=== PATIENT | female | born 1960 | race Caucasian/White ===

== ENCOUNTER 2021-04-22 14:09 | Inpatient (IN) | payer SELFPAY, OTHER ==
[2021-04-22 14:10] VITALS: BP 135/69; PULSE 99; RESP 16; TEMP 36.4; O2SAT 99; BMI 33.8
--- NOTE | 2021-04-22 15:26 | CT_ITS ---
EXAM: CT ANGIOGRAPHY HEAD AND NECK WITH INTRAVENOUS CONTRAST CLINICAL INDICATION: intermittent vertigo, confusion, aphasia,neck pain TECHNIQUE: [place]/head and neck CT angiography protocol performed with intravenous contrast. This CT exam was performed using one or more of the following dose reduction techniques: automated exposure control, adjustment of the mA and/or kV according to patient size, and/or use of iterative reconstruction technique. This report was created using [employer] report generation technology. MIP reconstructed images were created and reviewed. CONTRAST: IV 100mL Isovue-370 COMPARISON: None. FINDINGS: HEAD: RIGHT ANTERIOR CEREBRAL ARTERY: Unremarkable. No significant stenosis at the visualized segments. Anterior communicating artery is present. No aneurysm. RIGHT MIDDLE CEREBRAL ARTERY: Unremarkable. No significant stenosis at the visualized segments. No aneurysm. RIGHT POSTERIOR CEREBRAL ARTERY: Unremarkable. No occlusion or significant stenosis. No aneurysm. LEFT ANTERIOR CEREBRAL ARTERY: Unremarkable. No significant stenosis at the visualized segments. No aneurysm. LEFT MIDDLE CEREBRAL ARTERY: Unremarkable. No significant stenosis at the visualized segments. No aneurysm. LEFT POSTERIOR CEREBRAL ARTERY: Unremarkable. No occlusion or significant stenosis. No aneurysm. BASILAR ARTERY: Unremarkable. No significant stenosis. No aneurysm. GREAT VESSELS OF AORTIC ARCH: Unremarkable. Normal anatomy, patent. OTHER VASCULATURE: No vascular malformation. NECK: RIGHT COMMON CAROTID ARTERY: Unremarkable. No significant stenosis. No dissection or occlusion. RIGHT INTERNAL CAROTID ARTERY: There is calcified plaque formation of the right cavernous carotid artery, with a mild stenosis (less than 50%). There is calcified plaque formation of the left cavernous carotid artery, with a mild stenosis (less than 50%). ALL ABOVE CRITERIA BY NASCET. No dissection or occlusion. RIGHT EXTERNAL CAROTID ARTERY: Unremarkable. No occlusion. RIGHT VERTEBRAL ARTERY: Unremarkable. No significant stenosis. No dissection or occlusion. LEFT COMMON CAROTID ARTERY: Unremarkable. No significant stenosis. No dissection or occlusion. LEFT INTERNAL CAROTID ARTERY: There is mild atherosclerotic plaque formation of the origin of the right and left internal carotid artery with less than 50% cross sectional diameter stenosis. ALL ABOVE CRITERIA BY NASCET. LEFT EXTERNAL CAROTID ARTERY: Unremarkable. No occlusion. LEFT VERTEBRAL ARTERY: Unremarkable. No significant stenosis. No dissection or occlusion. LUNG APICES: Unremarkable as visualized. SOFT TISSUES: Unremarkable. OTHER FINDINGS: There are degenerative findings of the cervical spine. CAROTID STENOSIS REFERENCE USING NASCET CRITERIA: % ICA stenosis = (1 - narrowest ICA diameter/diameter of distal cervical ICA) x 100. Mild - <50% stenosis. Moderate - 50-69% stenosis. Severe - 70-94% stenosis. Near occlusion - 95-99% stenosis. Occluded - 100% stenosis. CT/CTA Head AND Neck W/ Contrast IMPRESSION: 1. There is mild atherosclerotic plaque formation of the origin of the right and left internal carotid artery with less than 50% cross sectional diameter stenosis. ALL ABOVE CRITERIA BY NASCET. 2. There is calcified plaque formation of the right cavernous carotid artery, with a mild stenosis (less than 50%). There is calcified plaque formation of the left cavernous carotid artery, with a mild stenosis (less than 50%). ALL ABOVE CRITERIA BY NASCET. Electronically Signed: Tony Jaeger MD at 17:39 EST ,
--- NOTE | 2021-04-22 15:26 | EKG12_ITS ---
Test Reason : Blood Pressure : / mmHG Vent. Rate : 082 BPM Atrial Rate : 082 BPM P-R Int : 144 ms QRS Dur : 082 ms QT Int : 354 ms P-R-T Axes : 043 -09 013 degrees QTc Int : 413 ms Normal sinus rhythm Normal ECG Confirmed by KHANH LUONG, DANIELLA ([id number]), commissioning editor LUIS ALFREDO JOAQUIN ([id number]) on 04/23/2021 9:47:48 AM Referred By: Confirmed By:DANIELLA CASSIDY MD
--- NOTE | 2021-04-22 15:28 | CT_ITS ---
STUDY: CT Abdomen And Pelvis W/ Contrast Injection 04/22/2021 5:39 PM REASON FOR EXAM: Female, 60 years old. ABDOMINAL PAIN diffuse abd pain, distension, n/v TECHNIQUE: Transaxial images were obtained without oral contrast, and with IV 100mL Isovue-370 intravenous contrast. Individualized dose optimization techniques were used for this CT. COMPARISON: None. FINDINGS: Small right pleural effusion. The visualized portions of the heart are within normal limits. Diffuse metastatic disease to liver. Perihepatic ascites. There are surgical clips in the gallbladder fossa consistent with a prior cholecystectomy. Normal spleen. Normal pancreas.There is hepatomegaly with diffuse hepatic enlargement. Normal bilateral adrenal glands. No acute findings of the right kidney. No acute findings of the left kidney. Focal wall thickening of the antrum of stomach. This can suggest a gastritis. Normal small intestine. Stool throughout the colon. There is non-visualization of the appendix. There are no acute findings of the abdominal aorta. Normal inferior vena cava. Subcentimeter mesenteric lymph nodes. Retroperitoneal adenopathy. Normal urinary bladder. Fibroid uterus visualized. There is mild free fluid in the pelvis. The source is not identified. Normal abdominal wall. Normal osseous structures. IMPRESSION: (NOT LISTED IN ORDER OF SIGNIFICANCE) Diffuse metastatic disease to liver. There is hepatomegaly with diffuse hepatic enlargement. Small right pleural effusion. Retroperitoneal adenopathy. Fibroid uterus visualized. There is mild free fluid in the pelvis. Perihepatic ascites. Gastritis. Other findings as above. Electronically Signed: Tony Jaeger MD at 17:44 EST , CT/Abdomen/Pelvis W IV Cont ONLY
--- NOTE | 2021-04-22 15:32 | EX.ED.DYSGE1 ---
HPI History of Present Illness Chief Complaint: General Illness Informant: patient and other Onset/Context/Timing Onset: Month(s) (1-2) Context: Gradual Onset Timing: Continuous Quality: See below Worsened by: movement Relieved by: remaining still Narrative Narrative: Patient states 2 months she started going to a chiropractor, she was having neck pain intermittently and low back soreness. With multiple adjustments, her back pain resolved and the neck pain persisted and she states at one point developed dizziness intermittent along with the neck pain each time. She states the neck pain was right posterior and then went across the back of her neck to the midline or so. She states it was intermittent. The dizziness seems to be worse with head movement and position changes, she denies spinning, she denies a sensation of movement, she states at times it feels lightheaded but she refuses to use any word other than dizzy. She states that she is having trouble walking and standing. She states the car ride here was terrible with regards to this dizziness getting worse, along with nausea. She has had tinnitus for the past 2 months or so. It is worse on the right but present bilaterally. The chiropractor advised that she do a detox since the manipulations were not helping her neck. The patient states this meant shakes that the chiropractor gave her with some type of supplement and the shakes and she was supposed to do it 3 times daily for a month. She states that tomorrow would have been 4 weeks but she states she has been feeling worse and worse since she started these and stopped them last week. She states she was constipated for a while, and had associated abdominal bloating, intermittent diffuse/periumbilical pains, and she started taking magnesium supplementation which helped the constipation about 2 weeks ago, and the bloating has been better but she still has it, pain off-and-on, and she gets nauseated every time she gets dizzy. She has very poor appetite and has been losing weight to the tune of 20 or 30 pounds or so. The friend who brought her states that there have been times where she has been speaking abnormally and seeming confused and the words that she says do not make any sense. That is not the case at this time right now. She states intermittently she has felt a little dyspneic but that is a rare symptom. She denies any chest pains or palpitations. She denies any fevers or chills, cough, or other illness but states at 1 point during the past 2 months she had rhinorrhea and she cannot say anything more about that. She is unvaccinated against Covid. She does not have a PCP. This is the first practitioner she has seen for all of the symptoms. PFS PFS Medical History no medical history no medical history Allergy/AdvReac Type Severity Reaction Status Date / Time No Known Allergies Allergy Verified 04/22/21 14:12 Surgical History (Updated 04/22/21 @ 15:57 by Yvette Rueda RN) Hx of appendectomy Hx of cholecystectomy Social History (Updated 04/22/21 @ 15:[address] Patric Monterroso MD) Smoking Status: Never smoker alcohol intake: never substance use type: does not use ROS ROS ED Constitutional Constitutional ED: Reports anorexia, fatigue, malaise and weight loss; Denies chills or fever(s) Eyes Eyes: Denies change in vision or diplopia ENT ENT ED: Reports rhinorrhea and tinnitus; Denies ear pain or sore throat Cardiovascular Cardiovascular: Denies chest pain or palpitations Respiratory/Chest Respiratory/Chest: Reports dyspnea; Denies cough Gastrointestinal Gastrointestinal: Reports abdominal pain, bloating, constipation and nausea; Denies diarrhea or vomiting Genitourinary Genitourinary ED: Denies dysuria or hematuria Musculoskeletal Musculoskeletal: Reports abnormal gait, back pain and neck pain; Denies extremity pain, joint pain or joint stiffness Integumentary Denies abscess or rash Neurologic Neurologic: Reports abnormal gait, abnormal speech, confusion and vertigo; Denies abnormal hearing, headache(s), paresthesias, seizures or weakness Psychiatric Psychiatric: Denies anxiety or suicidal thoughts EXAM Physical Exam Const Vital Signs: 04/22/21 14:10 04/22/21 15:57 04/22/21 17:06 Temperature 97.5 F L Temperature Source Temporal Pulse Rate 99 90 Respiratory Rate 16 18 Respiratory Effort Normal Non-Labored Respiratory Pattern Normal Blood Pressure 135/69 H 130/68 H Blood Pressure Mean 91 88 Pulse Ox 99 96 Oxygen Delivery Method Room Air Room Air Positive well nourished and well developed General Appearance ED: well developed and NAD HEENT Reports EAC's normal, TM's clear and moist mucous membranes HEENT Narrative: Mild fatigable horizontal nystagmus bilaterally. No vertical or rotatory nystagmus. normocephalic and atraumatic Tympanic Membrane ED: Yes TM's clear Eyes PERRL and EOMs intact bilaterally Neck full ROM, No nuchal rigidity, no lymphadenopathy, supple, no meningeal signs, no JVD, thyroid normal and no carotid bruits Resp normal respiratory effort and clear to auscultation bilaterally Cardio regular rate, regular rhythm and no murmurs GI non-distended GI Narrative: Diffuse mild tenderness and mild distention, soft, not tight. No palpable masses including no pulsatile mass. No Yo or Dodson Orosco sign in her abnormal appearance of the abdominal wall. Auscultation: normoactive bowel sounds Palpation: soft Back/Spine no CVA tenderness General Back: other FROM Extremity normal to inspection, no calf tenderness and no pedal edema General Extremety ED: Negative for edema, pulses abnormal or tenderness General Extremity: Negative for edema or pulses abnormal Neuro oriented x3, CN's II-XII intact bilaterally and no sensory deficits noted Neuro Narrative: Normal [id number] bilaterally. [id number]-bd-[id number]: No ataxia, but limited effort with pulling heel all the way to the knee. Symmetric. Speech normal, no aphasia. NIHSS 0. Jessica Coma Scale: document GCS findings Spontaneous Obeys Commands Oriented 15 Sensorium / Orientation: awake and alert Motor Exam: strength 5/5 throughout Skin no rashes or lesions noted and no wounds MDM MDM MDM Narrative Medical decision making narrative: Work-up is concerning for severe hypercalcemia, and imaging was performed of the head and neck, with angiography because of the unusual symptoms of intermittent dizziness that sounds more like vertigo along with intermittent neck pain associated with it, that only showed non-clinically significant plaques in the internal carotid systems. However imaging of the abdomen/pelvis shows what appears to be metastatic disease to the liver in addition to perihepatic ascites and retroperitoneal adenopathy. She has a small right pleural effusion. The source of all of this is unknown. She also has an elevated TSH. Her vital signs are normal and clinically she is stable. She does not have follow-up at this time. I think because of the hypercalcemia it is reasonable to admit her for further work-up and treatment. Lab Data Attestation: I reviewed the patient's lab results. Labs: Laboratory Results - last 24 hr 04/22/21 04/22/21 04/22/21 15:50 15:52 16:15 WBC 10.2 RBC 5.18 Hgb 14.8 Hct 45.4 MCV 87.6 MCH 28.6 MCHC 32.6 RDW Std Deviation 44.4 H RDW Coeff of Dolores 13.9 Plt Count 333 MPV 10.2 Immature Gran % (Auto) 0.500 Neut % (Auto) 81.4 H Lymph % (Auto) 9.5 L [place] % (Auto) 8.1 Eos % (Auto) 0.2 Baso % (Auto) 0.3 Absolute Neuts (auto) 8.3 H Absolute Lymphs (auto) 0.97 Nucleated RBC % 0 Sodium 135 L Potassium 3.9 Chloride 101 Carbon Dioxide 28.0 Anion Gap 6 BUN 11 Creatinine 0.85 Estim Creat Clear Calc 56.77 Est GFR (MDRD) Af Amer 87 Est GFR (MDRD) Non-Af 72 BUN/Creatinine Ratio 13.0 Glucose 123 H Calcium 14.0 H* Total Bilirubin 0.60 AST 155 H ALT 70 H Alkaline Phosphatase 174 H Troponin I High Sens 7 Total Protein 7.2 Albumin 2.8 L Globulin 4.4 H Albumin/Globulin Ratio 0.6 L TSH 6.90 H Urine Color Yellow Urine Clarity Clear Urine pH 6.0 Ur Specific [place] 1.020 Urine Protein Negative Urine Glucose (UA) Normal Urine Ketones 15 H Urine Occult Blood Negative Urine Nitrite Negative Urine Bilirubin Negative Urine Urobilinogen Normal Ur Leukocyte Esterase 25 H Urine RBC 0 SEEN Urine WBC 0-5 SEEN Ur Squamous Epith Cells 0 SEEN Urine Bacteria 1+ Hyaline Casts 10-25 SEEN Urine Mucus 0 SEEN Radiography Diagnostic Testing: Clinical Impression(s) from Imaging Studies Head/Neck CTA 04/22/21 15:26 IMPRESSION: 1. There is mild atherosclerotic plaque formation of the origin of the right and left internal carotid artery with less than 50% cross sectional diameter stenosis. ALL ABOVE CRITERIA BY NASCET. 2. There is calcified plaque formation of the right cavernous carotid artery, with a mild stenosis (less than 50%). There is calcified plaque formation of the left cavernous carotid artery, with a mild stenosis (less than 50%). ALL ABOVE CRITERIA BY NASCET. Electronically Signed: Tony Jaeger MD at 17:39 EST Reading Location ID and State: [facility] / [place] , Service support , Abdomen/Pelvis CT 04/22/21 15:28 Chest X-Ray 04/22/21 17:18 IMPRESSION: There is a right pleural effusion. Electronically Signed: Tony Jaeger MD at 17:36 EST Reading Location ID and State: [facility] / [place] , Service support , EKG Initial EKG: Attestation: I personally reviewed and interpreted this EKG as follows: Interpretation: Sinus Rhythm and No Acute Injury Pattern Comments: Normal axis. Normal EKG. Prior: No Prior Discharge Plan Triage Chief Complaint: General Illness ED Provider: Patric Monterroso Dx/Rx/DC Orders Clinical Impression: Hypercalcemia, Cancer, metastatic to liver, Pleural effusion on right, Intermittent vertigo, Neck pain Primary Care Provider: Farida Garrison Referrals: Farida Garrison, [Primary Care Provider] - Disposition Disposition: Acute Care Hospital [facility]
--- NOTE | 2021-04-22 15:41 | NURSING ---
NO OLD EKGS
[2021-04-22 16:05] LABS: Mucous, Urine 0 SEEN /hpf (<or=2+); Red Blood Cells-Urine 0 SEEN /hpf (0-5); Squamous Epithelial Cells - UA 0 SEEN /hpf (5-10)
[2021-04-22 16:16] LABS: Absolute Lymphocyte Count 0.97 X10^3/uL (0.83-4.51); Absolute Neutrophil Count 8.3 X10^3/uL (2.0-7.7); Basophil# 0.03 X10^3/uL; Basophil% 0.3 % (0-1); Eosinophil# 0.02 X10^3/uL; Eosinophils% 0.2 % (0-5); Hematocrit 45.4 % (37-47); Hemoglobin 14.8 g/dL (12.0-15.0); Lymphocyte # 0.97 X10^3/ul (0.83-4.51); Lymphocyte % 9.5 % (19-41); Mean Corp Hgb Conc 32.6 g/dL (32-36); Mean Corpuscular Hgb 28.6 pg (27.0-32.0); Mean Corpuscular Volume 87.6 fL (81-99); Mean Platelet Vol. 10.2 fl (6.2-12.0); Monocyte# 0.83 X10^3/uL; Monocyte% 8.1 % (0-10); NRBC Flagged by Analyzer 0 % (0-5); Neutrophil % 81.4 % (47-70); Platelet Count 333 K/mm3 (150-450); RBC Distribution Width CV 13.9 % (11.6-14.6); RBC Distribution Width SD 44.4 fl (35.1-43.9); Red Blood Count 5.18 M/mm3 (4.2-5.4); White Blood Count 10.2 K/mm3 (4.4-11.0)
[2021-04-22 16:35] LABS: Color, Urine Yellow (Yellow); Glucose, Dipstick Normal (Normal); Ketone-Dipstick 15 mg/dl (Negative); Leukocyte Esterase-Dipstick 25 /ul (Negative); Nitrite-Dipstick Negative (Negative); Occult Blood-Urine Negative /ul (Negative); Protein-Dipstick Negative (Negative); Urine Bilirubin Dipstick Negative (Negative); Urine Clarity Clear (Clear); Urine Urobilinogen Normal (Normal)
[2021-04-22 16:42] LABS: Hyaline Cast 10-25 SEEN /lpf (0-5)
[2021-04-22 16:43] LABS: Bacteria 1+ /hpf (None Seen); White Blood Cells 0-5 SEEN /hpf (0-5)
[2021-04-22] MEDS: 0.9% Normal Saline 1,000 ML 1000 ML IV (16:50)
[2021-04-22 16:53] LABS: BUN 11 mg/dL (7-18); Creatinine, Serum 0.85 mg/dL (0.55-1.02); Estimated Creatinine Clearance 56.77 ml/min; Glucose 123 mg/dL (74-106)
[2021-04-22 16:54] LABS: ALB/GLOB Ratio 0.6 RATIO (0.9-2.4); AST(SGOT) 155 U/L (15-37); Alanine Aminotransfer ALT/SGPT 70 U/L (13-56); Albumin, Serum 2.8 g/dL (3.2-5.0); Alkaline Phosphatase 174 U/L (45-117); Anion Gap 6 (5-15); Chloride 101 mmol/L (98-107); EST Glomerular Filtration Rate 72 mL/min (>60); Est Glom Filt Rate - Afr Amer 87 mL/min (>60); Globulin 4.4 g/dL (2.2-4.2); Potassium 3.9 mmol/L (3.5-5.1); Protein, Total 7.2 g/dL (6.4-8.2); Sodium Level 135 mmol/L (136-145); Troponin-I HS 7 pg/mL (3.0-54.0)
[2021-04-22 17:06] VITALS: BP 130/68; PULSE 90; RESP 18; O2SAT 96
--- NOTE | 2021-04-22 17:18 | RAD_ITS ---
STUDY: X-RAY CHEST REASON FOR EXAM: Female, 60 years old. CHEST PAIN intermittent dyspnea TECHNIQUE: XR Chest 2 Views COMPARISON: None FINDINGS: There is a right pleural effusion. Normal size heart. Normal mediastinum and keenan. Normal visualized pulmonary arteries. Normal visualized aortic arch and descending thoracic aorta. There are diffuse degenerative changes of the visualized thoracic spine. Normal visualized ribs, clavicles, and shoulders. There is no demonstrated abnormality of the visualized soft tissue structures of the upper abdomen. RAD/Chest PA and Lateral IMPRESSION: There is a right pleural effusion. Electronically Signed: Tony Jaeger MD at 17:36 EST ,
--- NOTE | 2021-04-22 18:05 | CT_ITS ---
STUDY: CT Chest W/O Contrast Injection 04/22/2021 7:02 PM REASON FOR EXAM: Female, 60 years old. R pleural effusion Individualized dose optimization techniques were used for this CT. TECHNIQUE: Transaxial imaging was performed withoutIV contrast material. COMPARISON: None. FINDINGS: There are degenerative changes of the shoulders. There is no pneumothorax. Small right pleural effusion. 7 mm nodule in the left lower lobe. Series 2 image 72. 2 mm nodule in superior segment of the left lower lobe. 5 mm nodule in the left upper lobe. There are calcifications of the coronary arteries. Normal mediastinum. Normal hilar regions. Normal pulmonary arteries. There is atherosclerotic calcification of the aortic arch with tortuosity and elongation of the aortic arch and descending thoracic aorta. There are multi-level degenerative changes of the thoracic spine. Diffuse metastatic disease to liver. There is hepatomegaly with diffuse hepatic enlargement. CT/Chest without Contrast IMPRESSION: Multiple left pulmonary nodules. Metastatic disease to the lungs is a concern. Diffuse metastatic disease to liver. There is hepatomegaly with diffuse hepatic enlargement. Small right pleural effusion. Electronically Signed: Tony Jaeger MD at 19:13 EST Reading Location ID and State: [facility] / [place] , Service support ,
--- NOTE | 2021-04-22 18:14 | NURSING ---
Marilyn cordero hypercalcemia, cancer with hepatic metastases, rt pleural effusion
[2021-04-22 18:36] VITALS: BP 132/64; PULSE 80; RESP 18; TEMP 36.6; O2SAT 96
--- NOTE | 2021-04-22 18:44 | PCM.HP.STD ---
Documented by User: SAMANTA Snowden 04/22/21 19:11 HPI - General General Date of Admission: 04/22/21 Date of Service: 04/22/21 Chief Complaint: Confusion, dizziness HPI Narrative JAYLA HERNÁNDEZ, is a 60 F who presents with complaints of dizziness as well as neck pain and confusion. Patient's daughter is at bedside and states that she has been confused and had rambling speech. Patient states that approximately 2 months ago she began having neck pain and low back soreness and saw a chiropractor for which the lower back pain resolved however the neck pain persisted at one point she began having dizziness as well as neck pain. She reports that the neck pain is right posterior and then goes across the back of her neck to her spine. Patient states that she has associated nausea with the dizziness and has had ringing in her ears for the past 2 months or so. Patient states that while she was under the care of a chiropractor she recommended supplementation and shakes for a detox. Patient also reports that she has been constipated and has been taking magnesium supplement at home however this has not improved her constipation. Patient also reports abdominal bloating and intermittent diffuse abdominal pain. Patient states that she has not seen a primary care provider in 8 to 10 years. [facility] Medical History (Updated 04/22/21 @ 19:[address] Nancy Colon MD) Non-smoker Obesity Medical History no medical history no medical history Home Medications magnesium oxide 400 mg PO DAILY 04/22/21 [History Last Taken 04/21/21] Allergy/AdvReac Type Severity Reaction Status Date / Time No Known Allergies Allergy Verified 04/22/21 14:12 Family History unable to obtain unable to obtain Surgical History Hx of appendectomy Hx of cholecystectomy Social History (Updated 04/22/21 @ 19:[address] Nancy Colon MD) household members: spouse Smoking Status: Never smoker alcohol intake: never substance use type: does not use ROS Constitutional Constitutional: Denies anorexia, chills, fatigue, fever(s), malaise or weakness ENT HEENT: Reports rhinorrhea and tinnitus Cardiovascular Cardiovascular: Denies chest pain, edema, palpitations or syncope Respiratory/Chest Respiratory/Chest: Denies cough, shortness of breath at rest, shortness of breath with exertion or wheezing Gastrointestinal Gastrointestinal: Reports abdominal pain, bloating, change in bowel habits, constipation and nausea Genitourinary Genitourinary: Denies dysuria Musculoskeletal Musculoskeletal: Reports neck pain; Denies back pain, extremity pain, joint pain or joint stiffness Integumentary Integumentary: Denies dry skin Neurologic Neurologic: Reports abnormal speech, confusion and dizziness; Denies abnormal gait, numbness, tingling or weakness Psychiatric Psychiatric: Denies anxiety or depression Endocrine Endocrinology: Denies change in body appearance Hematologic/Lymphatic Hematologic/Lymphatic: Denies anemia or easy bleeding Vital Signs Vital Signs Vital Signs: 04/22/21 14:10 04/22/21 15:57 04/22/21 17:06 Temperature 97.5 F L Temperature Source Temporal Pulse Rate 99 90 Respiratory Rate 16 18 Respiratory Effort Normal Non-Labored Respiratory Pattern Normal Blood Pressure 135/69 H 130/68 H Blood Pressure Mean 91 88 Pulse Ox 99 96 Oxygen Delivery Method Room Air Room Air 04/22/21 18:36 Temperature 98 F Temperature Source Temporal Pulse Rate 80 Respiratory Rate 18 Respiratory Effort Respiratory Pattern Blood Pressure 132/64 H Blood Pressure Mean 86 Pulse Ox 96 Oxygen Delivery Method Room Air Weight Weight: 191 lb Body Mass Index (BMI) 33.8 Physical Exam Const alert General Appearance: cooperative Orientation / Consciousness: confused HEENT normocephalic and head/scalp atraumatic Eyes conjunctivae normal and no scleral icterus Neck supple General: trachea midline Resp normal respiratory effort, normal air movement and clear to auscultation bilaterally Cardio regular rate, regular rhythm, S1 normal heart sound, S2 normal heart sound and peripheral pulses 2+ throughout GI Inspection: abdominal distention Auscultation: normoactive bowel sounds Palpation: tender epigastric, LUQ and RUQ and hepatomegaly Extremity normal capillary refill and no clubbing, cyanosis or edema General Extremity: no tenderness to palpation of joints or extremities Skin General Skin Exam: no breakdown and turgor normal Lesions: no lesions Rashes: no rashes Neuro no focal motor deficits and no sensory deficits noted Sensorium / Orientation: awake, alert and confused Coordination / Balance: [id number] test normal and [id number] test normal Psych cooperative Mood & Affect: tearful Thought Process: confused Results Lab / Micro Data Result Diagrams: 04/22/21 15:52 04/22/21 16:15 Labs: Laboratory Results - last 24 hr 04/22/21 15:50: Urine Color Yellow, Urine Clarity Clear, Urine pH 6.0, Ur Specific [place] 1.020, Urine Protein Negative, Urine Glucose (UA) Normal, Urine Ketones 15 H, Urine Occult Blood Negative, Urine Nitrite Negative, Urine Bilirubin Negative, Urine Urobilinogen Normal, Ur Leukocyte Esterase 25 H, Urine RBC 0 SEEN, Urine WBC 0-5 SEEN, Ur Squamous Epith Cells 0 SEEN, Urine Bacteria 1+, Hyaline Casts 10-25 SEEN, Urine Mucus 0 SEEN 04/22/21 15:52: WBC 10.2, RBC 5.18, Hgb 14.8, Hct 45.4, MCV 87.6, MCH 28.6, MCHC 32.6, RDW Std Deviation 44.4 H, RDW Coeff of Dolores 13.9, Plt Count 333, MPV 10.2, Immature Gran % (Auto) 0.500, Neut % (Auto) 81.4 H, Lymph % (Auto) 9.5 L, [place] % (Auto) 8.1, Eos % (Auto) 0.2, Baso % (Auto) 0.3, Absolute Neuts (auto) 8.3 H, Absolute Lymphs (auto) 0.97, Nucleated RBC % 0 04/22/21 16:15: Sodium 135 L, Potassium 3.9, Chloride 101, Carbon Dioxide 28.0, Anion Gap 6, BUN 11, Creatinine 0.85, Estim Creat Clear Calc 56.77, Est GFR (MDRD) Af Amer 87, Est GFR (MDRD) Non-Af 72, BUN/Creatinine Ratio 13.0, Glucose 123 H, Calcium 14.0 H*, Total Bilirubin 0.60, AST 155 H, ALT 70 H, Alkaline Phosphatase 174 H, Troponin I High Sens 7, Total Protein 7.2, Albumin 2.8 L, Globulin 4.4 H, Albumin/Globulin Ratio 0.6 L, TSH 6.90 H Radiology Impression Head/Neck CTA 04/22/21 15:26 IMPRESSION: 1. There is mild atherosclerotic plaque formation of the origin of the right and left internal carotid artery with less than 50% cross sectional diameter stenosis. ALL ABOVE CRITERIA BY NASCET. 2. There is calcified plaque formation of the right cavernous carotid artery, with a mild stenosis (less than 50%). There is calcified plaque formation of the left cavernous carotid artery, with a mild stenosis (less than 50%). [facility] Electronically Signed: Tony Jaeger MD at 17:39 EST , Abdomen/Pelvis CT 04/22/21 15:28 Chest X-Ray 04/22/21 17:18 IMPRESSION: There is a right pleural effusion. Electronically Signed: Tony Jaeger MD at 17:36 EST , Assessment & Plan Assessment/Plan (1) Hypercalcemia: (2) Cancer, metastatic to liver: (3) Pleural effusion on right: PLAN: 1. Hypercalcemia -Admit to PCU for cardiac monitoring, calcium 14.0 -CBC, CMP, magnesium, phosphorus, PTH, TSH in a.m. -Zoledronic acid 4 mg IV x1 ordered -Normal saline 200 mL/h -Lasix 40 mg IV twice daily -Head neck CTA demonstrates less than 50% stenosis of the right cavernous carotid, left cavernous carotid and right and left internal carotid arteries. -Regular diet with low calcium restrictions ordered -PT and OT to eval and treat -Strict intake and output 2. Cancer metastatic to liver -Abdominal pelvic CT demonstrates diffuse metastatic disease to liver with hepatomegaly with diffuse hepatic enlargement, small right pleural effusion, retroperitoneal adenopathy, fibroid uterus visualized, with mild free fluid in the pelvis, perihepatic ascites, gastritis. -Cancer diagnosis is new for patient, patient has not seen a physician and 8 to 10 years. -Carcinoembryonic antigen, K August 12, 2024, CA 19?9 serial -Consult oncology, [place] [facility] -Case management consulted for discharge planning -AST elevated 155, ALT 70, alkaline phosphatase 174, total bilirubin 1.60 -Will continue IV morphine and Zofran 3. Right-sided pleural effusion -Right-sided pleural effusion noted to chest x-ray however does not appear to be large enough for thoracentesis -Chest CT pending -Patient current respiratory rate 15, O2 sat 96% on room air -Oxygen therapy per protocol DVT prophylaxis-subcu Lovenox, SCDs This patient was seen by SAMANTA Snowden under the supervision of Dr. Colon. 34 minutes spent in clinical coordination of patient's plan of care. Documented by User: Dr. Nancy Colon MD 04/22/21 19:42 HPI - General General Date of Admission: 04/22/21 [facility] Medical History (Updated 04/22/21 @ 19:[address] Nancy Colon MD) Non-smoker Obesity Medical History no medical history Home Medications magnesium oxide 400 mg PO DAILY 04/22/21 [History Last Taken 04/21/21] Allergy/AdvReac Type Severity Reaction Status Date / Time No Known Allergies Allergy Verified 04/22/21 14:12 Family History unable to obtain unable to obtain (Patient encephalopathic and unable to give appropriate history.) Surgical History Hx of appendectomy Hx of cholecystectomy Social History (Updated 04/22/21 @ 19:[address] Nancy Colon MD) household members: spouse Smoking Status: Never smoker alcohol intake: never substance use type: does not use Results Lab / Micro Data Result Diagrams: 04/22/21 15:52 04/22/21 16:15
[2021-04-22] MEDS: Ondansetron 4 MG/2 ML Vial IV (18:46)
[2021-04-22] MEDS: Morphine 4 MG/ML Syringe IV (18:46)
[2021-04-22 18:58] VITALS: BMI 34.9
[2021-04-22 19:48] VITALS: BMI 34.4
[2021-04-22 19:51] VITALS: BP 133/59; PULSE 84; RESP 16; TEMP 36.6; O2SAT 96
[2021-04-22 19:56] VITALS: PULSE 78
[2021-04-22] MEDS: 0.9% Normal Saline 1,000 ML 200 ML IV (20:21)
[2021-04-22 20:49] LABS: International Normalized Ratio 1.2; Prothrombin Time (Protime)PT. 14.8 SECONDS (11.7-14.9)
[2021-04-22 20:50] LABS: Partial Thromboplast Time 28.5 Seconds (24.1-36.2)
[2021-04-22] MEDS: Docusate Sodium 100 MG Capsule PO (21:53)
[2021-04-23] VITALS (10 sets, daily range): BP systolic 106–125; BP diastolic 51–61; PULSE 65–85; RESP 16–18; TEMP 36.6–37; O2SAT 93–98
[2021-04-23] MEDS: 0.9% Normal Saline 1,000 ML 200 ML IV ×5 (01:59→22:11)
[2021-04-23 06:12] LABS: Absolute Lymphocyte Count 0.78 X10^3/uL (0.83-4.51); Absolute Neutrophil Count 6.3 X10^3/uL (2.0-7.7); Basophil# 0.03 X10^3/uL; Basophil% 0.4 % (0-1); Eosinophil# 0.03 X10^3/uL; Eosinophils% 0.4 % (0-5); Hematocrit 35.2 % (37-47); Hemoglobin 11.2 g/dL (12.0-15.0); Lymphocyte # 0.78 X10^3/ul (0.83-4.51); Mean Corp Hgb Conc 31.8 g/dL (32-36); Mean Corpuscular Hgb 28.2 pg (27.0-32.0); Mean Corpuscular Volume 88.7 fL (81-99); Mean Platelet Vol. 9.4 fl (6.2-12.0); Monocyte# 0.63 X10^3/uL; Monocyte% 8.1 % (0-10); NRBC Flagged by Analyzer 0 % (0-5); Neutrophil # 6.27 X10^3/uL (2.7-7.7); Neutrophil % 80.6 % (47-70); Platelet Count 269 K/mm3 (150-450); RBC Distribution Width SD 45.1 fl (35.1-43.9); Red Blood Count 3.97 M/mm3 (4.2-5.4); White Blood Count 7.8 K/mm3 (4.4-11.0)
[2021-04-23 06:38] LABS: ALB/GLOB Ratio 0.5 RATIO (0.9-2.4); AST(SGOT) 137 U/L (15-37); Alanine Aminotransfer ALT/SGPT 57 U/L (13-56); Albumin, Serum 2.1 g/dL (3.2-5.0); Alkaline Phosphatase 148 U/L (45-117); Anion Gap 4 (5-15); BUN 8 mg/dL (7-18); BUN/Creat Ratio 13.2 RATIO (10-20); Calcium,Total 12.4 mg/dL (8.5-10.1); Chloride 108 mmol/L (98-107); Creatinine, Serum 0.61 mg/dL (0.55-1.02); EST Glomerular Filtration Rate 106 mL/min (>60); Est Glom Filt Rate - Afr Amer 128 mL/min (>60); Globulin 3.9 g/dL (2.2-4.2); Glucose 88 mg/dL (74-106); Phosphorus 2.3 mg/dL (2.5-4.9); Potassium 3.7 mmol/L (3.5-5.1); Sodium Level 139 mmol/L (136-145); T4 Free Direct 1.03 ng/dL (0.76-1.46)
[2021-04-23 08:28] LABS: PTHIN < 6.3 pg/mL (18.4-80.1)
--- NOTE | 2021-04-23 10:35 | CASEMGMT ---
RN CM Face to Face with patient for initial transition planning/care coordination assessment. RN CM introduced self and role at [facility]. Patient lying in bed, alert and oriented, daughter at bedside. Patient willing to participate in assessment and is able to answer all questions appropriately. Care providers, pharmacy, and demographics verified. Patient wishes to discharge home, denies need for home health at this time. Patient states she has no further needs or concerns at this time. CM to follow for discharge planning needs that may arise. PCP: Bladimir Specialists: none Preferred Pharmacy: [facility] Insurance: self pay Prescription Benefit: self pay Living Will/HPOA: yes, daughter Marilee Coy LNOK: , daughter Living Arrangements: Patient lives with in a one story home with 3 steps to enter the home. Patient states she is independent at home. Transportation: , daughter DME/HHC: Patient has built in shower chair, raised toilet, and cane at home. Patient denies previous HHC or SNF. Disposition Plan: Patient to discharge home with family support and follow-up plans in place. Ashley ERNANDEZ, RN, CM
[2021-04-23] MEDS: Docusate Sodium 100 MG Capsule PO ×2 (10:48→19:44)
[2021-04-23] MEDS: Polyethylene Glycol 3350 17 GM PACKET PO (10:48)
[2021-04-23] MEDS: Furosemide 40 MG/4 ML Vial IV ×2 (10:48→17:03)
[2021-04-23] MEDS: 0.9% Saline Lock 10 ML Syringe IV ×2 (11:05→13:50)
--- NOTE | 2021-04-23 13:37 | CHAPLAIN ---
Type of Pastoral Visit _x__ Initial Visit ___ Follow-up Visit ___ On-call Visit ___ General Patient Visit ___ Spiritual Assessment ___ Family Conference ___ Bereavement ___ Rapid Response ___ Code Blue ___ Other (describe below) Pastoral Care Referral From _x__ Patient ___ Family _x__ Nurse ___ Physician ___ Immigration Patrol Inspector ___ Records Administrator ___ Other (describe below) Sacrament/Intervention _x__ Active listening ___ Anointing ___ Yarsani ___ Bereavement ___ Communion _x__ Syeda exploration ___ _x__ Life review _x__ Prayer ___ Reconciliation ___ Sacrament of Sick _x__ Supportive presence ___ Wedding ___ Other (describe below) Pastoral Comments patient has received new diagnosis of cancer and expresses her feelings and the difficulty of what 'might be ahead' for her; pt is tearful but is trying to hold it in and dealing with it; pt daughter is with her but stepped out of room for a time; pt requests that her underwriting technician be allowed to visit and support her; permission was granted by community chest officer and her underwriting technician was called; talked about the spiritual help that she has and about her family which is all close by and supportive; prayer welcomed; future visits for spiritual care support are welcomed
[2021-04-23] MEDS: Ondansetron 4 MG/2 ML Vial IV (13:44)
--- NOTE | 2021-04-23 13:57 | CASEMGMT ---
Social Work SW met with pt to offer support. Pt reports nausea at this time and not up for visit. SW will attempt to see tomorrow. PATRICIA Carr
--- NOTE | 2021-04-23 15:14 | ONC.CONSULT ---
Assessment & Plan Assessment/Plan (1) Hypercalcemia: Status: Acute Code(s): E83.52 - Hypercalcemia Plan: May be malignancy related. Pt has received Zometa. (2) Cancer, metastatic to liver: Status: Acute Code(s): C78.7 - Secondary malignant neoplasm of liver and intrahepatic bile duct Plan: Suggest CT guided biopsy of liver, MRI brain to R/O brain metastases, to obtain GI consult because of the projectile vomiting. She will needed PET/CT scan as outpatient. Will follow with further management suggestions after the biopsy report. HPI Consult Data Date of Service:: 04/23/21 PCP / Referring Provider: Dr. Farida Garrison DO Attending: Dr. Doris Llanes MD Chief Complaint Chief Complaint: Asked to see Pt for Liver mass. History of Present Illness History of Present Illness: 60y.o.woman came to ER with General body pain and dizziness. Had Ct scan of chest, abdomen and pelvis which showed small left nodules, small pleural effusions, multiple liver nodules with Hypercalcemia and admitted to the Hospital. When I saw her in the hassan, she had projectile vomiting x1. Advanced Directives Power of Door To Door Lead Generation: Yes Living Will: Yes [facility] Medical History (Updated 04/22/21 @ 19:[address] Nancy Colon MD) Non-smoker Obesity Medical History no medical history Home Medications magnesium oxide 400 mg PO DAILY 04/22/21 [History Last Taken 04/21/21] Allergy/AdvReac Type Severity Reaction Status Date / Time No Known Allergies Allergy Verified 04/22/21 14:12 Family History no significant family his no significant family history Surgical History Hx of appendectomy Hx of cholecystectomy Social History (Updated 04/22/21 @ 19:[address] Nancy Colon MD) household members: spouse Smoking Status: Never smoker alcohol intake: never substance use type: does not use ROS Constitutional Constitutional: Reports fatigue and poor appetite; Denies chills or fever(s) ENT HEENT: Denies dysphagia or hoarseness Cardiovascular Cardiovascular: Denies chest pain or clubbing Respiratory/Chest Respiratory/Chest: Denies chest tightness, cough or dyspnea Gastrointestinal Gastrointestinal: Reports abdominal pain Genitourinary Genitourinary: Denies change in urinary stream Musculoskeletal Musculoskeletal: Denies abnormal gait or back pain Integumentary Integumentary: Denies alopecia or changing lesions Neurologic Neurologic: Denies abnormal speech or behavior changes Psychiatric Psychiatric: Denies anxiety or depression Endocrine Endocrinology: Denies cold intolerance Hematologic/Lymphatic Hematologic/Lymphatic: Reports easy bleeding Physical Exam Const alert and oriented x3 Orientation / Consciousness: oriented to person HEENT normocephalic Head and Scalp: atraumatic Eyes PERRL, EOMs intact bilaterally and conjunctivae normal Neck no lymphadenopathy Lymph Lymphatic: no lymphadenopathy noted Chest inspection of chest normal Resp normal respiratory effort and clear to auscultation bilaterally Effort and Inspection: symmetric chest movement Cardio regular rate, regular rhythm, S1 normal heart sound, S2 normal heart sound and no murmurs GI normal to inspection, nondistended, normoactive bowel sounds Extremity normal to inspection and no clubbing, cyanosis or edema Skin no rashes or lesions noted Neuro CN's II-XII intact bilaterally, moves all extremities, no focal motor deficits and no sensory deficits noted Psych mental status grossly normal Vital Signs Temperature 97.9 F 04/23/21 10:46 Temperature Source Oral 04/23/21 10:46 Pulse Rate 75 04/23/21 10:46 Pulse Strength Normal (2+) 04/23/21 09:50 Respiratory Rate 16 04/23/21 10:46 Respiratory Effort Non-Labored 04/23/21 09:52 Respiratory Depth Normal 04/23/21 09:52 Respiratory Pattern Normal 04/23/21 09:52 Blood Pressure 120/60 04/23/21 10:46 Blood Pressure Mean 80 04/23/21 10:46 Blood Pressure Source Monitor 04/23/21 10:46 Blood Pressure Position Semi-Fowlers 04/23/21 10:46 Blood Pressure Location Right Arm 04/23/21 10:46 Pulse Ox 94 04/23/21 10:46 Oxygen Delivery Method Room Air 04/23/21 10:46 Laboratory Results - last 24 hr 04/22/21 15:50: Urine Color Yellow, Urine Clarity Clear, Urine pH 6.0, Ur Specific [place] 1.020, Urine Protein Negative, Urine Glucose (UA) Normal, Urine Ketones 15 H, Urine Occult Blood Negative, Urine Nitrite Negative, Urine Bilirubin Negative, Urine Urobilinogen Normal, Ur Leukocyte Esterase 25 H, Urine RBC 0 SEEN, Urine WBC 0-5 SEEN, Ur Squamous Epith Cells 0 SEEN, Urine Bacteria 1+, Hyaline Casts 10-25 SEEN, Urine Mucus 0 SEEN 04/22/21 15:52: WBC 10.2, RBC 5.18, Hgb 14.8, Hct 45.4, MCV 87.6, MCH 28.6, MCHC 32.6, RDW Std Deviation 44.4 H, RDW Coeff of Dolores 13.9, Plt Count 333, MPV 10.2, Immature Gran % (Auto) 0.500, Neut % (Auto) 81.4 H, Lymph % (Auto) 9.5 L, [place] % (Auto) 8.1, Eos % (Auto) 0.2, Baso % (Auto) 0.3, Absolute Neuts (auto) 8.3 H, Absolute Lymphs (auto) 0.97, Nucleated RBC % 0 04/22/21 16:15: Sodium 135 L, Potassium 3.9, Chloride 101, Carbon Dioxide 28.0, Anion Gap 6, BUN 11, Creatinine 0.85, Estim Creat Clear Calc 56.77, Est GFR (MDRD) Af Amer 87, Est GFR (MDRD) Non-Af 72, BUN/Creatinine Ratio 13.0, Glucose 123 H, Calcium 14.0 H*, Total Bilirubin 0.60, AST 155 H, ALT 70 H, Alkaline Phosphatase 174 H, Troponin I High Sens 7, Total Protein 7.2, Albumin 2.8 L, Globulin 4.4 H, Albumin/Globulin Ratio 0.6 L, TSH 6.90 H 04/22/21 20:10: PT 14.8, INR 1.2, APTT 28.5 04/22/21 20:10: Magnesium 2.2 04/23/21 05:40: WBC 7.8, RBC 3.97 L, Hgb 11.2 L, Hct 35.2 L, MCV 88.7, MCH 28.2, MCHC 31.8 L, RDW Std Deviation 45.1 H, RDW Coeff of [place]ores 14.0, Plt Count 269, MPV 9.4, Immature Gran % (Auto) 0.500, Neut % (Auto) 80.6 H, Lymph % (Auto) 10.0 L, [place] % (Auto) 8.1, Eos % (Auto) 0.4, Baso % (Auto) 0.4, Absolute Neuts (auto) 6.3, Absolute Lymphs (auto) 0.78 L, Nucleated RBC % 0 04/23/21 05:40: Sodium 139, Potassium 3.7, Chloride 108 H, Carbon Dioxide 27.0, Anion Gap 4 L, BUN 8, Creatinine 0.61, Estim Creat Clear Calc 79.10, Est GFR (MDRD) Af Amer 128, Est GFR (MDRD) Non-Af 106, BUN/Creatinine Ratio 13.2, Glucose 88, Calcium 12.4 H, Phosphorus 2.3 L, Total Bilirubin 0.40, AST 137 H, ALT 57 H, Alkaline Phosphatase 148 H, Total Protein 6.0 L, Albumin 2.1 L, Globulin 3.9, Albumin/Globulin Ratio 0.5 L, Free T4 1.03 04/23/21 05:40: PTH Intact < 6.3 L Diagnostic Data Head/Neck CTA 04/22/21 15:26 IMPRESSION: 1. There is mild atherosclerotic plaque formation of the origin of the right and left internal carotid artery with less than 50% cross sectional diameter stenosis. ALL ABOVE CRITERIA BY NASCET. 2. There is calcified plaque formation of the right cavernous carotid artery, with a mild stenosis (less than 50%). There is calcified plaque formation of the left cavernous carotid artery, with a mild stenosis (less than 50%). ALL ABOVE CRITERIA BY NASCET. Electronically Signed: Tony Jaeger MD at 17:39 EST , Abdomen/Pelvis CT 04/22/21 15:28 Diffuse metastatic disease to liver. There is hepatomegaly with diffuse hepatic enlargement. Small right pleural effusion. Retroperitoneal adenopathy. Fibroid uterus visualized. There is mild free fluid in the pelvis. Perihepatic ascites. Gastritis. Other findings as above. Electronically Signed: Tony Jaeger MD Chest X-Ray 04/22/21 17:18 IMPRESSION: There is a right pleural effusion. Electronically Signed: Tony Jaeger MD at 17:36 EST , Chest CT 04/22/21 18:05 IMPRESSION: Multiple left pulmonary nodules. Metastatic disease to the lungs is a concern. Diffuse metastatic disease to liver. There is hepatomegaly with diffuse hepatic enlargement. Small right pleural effusion. Electronically Signed: Tony Jaeger MD at 19:13 EST Reading Location ID and State: [address] [place] [address] , Service support , Charges/Coding Visit Charges Office Visits / Consults: [id number] IP Consult L4
--- NOTE | 2021-04-23 15:43 | PN.HOSP_ITS ---
Subjective Subjective Patient seen and examined. She complains of feeling tired today. She complains of epigastric pain today. She also complains of nausea and vomiting. Review of systems otherwise negative. Patient states she had a colonoscopy within the last 5 years and was done at [facility] and she was told was all normal. She also had a mammogram done some years ago and states it was normal. She has remained hemodynamically stable. Objective Data Objective Data Vital Signs: Vital Signs Temp Pulse Resp BP Pulse Ox 97.9 F 75 16 120/60 94 04/23/21 10:46 04/23/21 10:46 04/23/21 10:46 04/23/21 10:46 04/23/21 10:46 Oxygen Delivery Method Room Air Weight: 194 lb 8.01 oz Body Mass Index (BMI) 34.4 Intake & Output: Intake and Output for Last 24 Hours 04/21/21 04/22/21 04/23/21 23:59 23:59 23:59 Intake Total 1158.33 / 1398.33 3186.67 / 3186.67 Balance 1158.33 / 1398.33 3186.67 / 3186.67 Lab / Micro Data Result Diagrams: 04/23/21 05:40 04/23/21 05:40 Labs: Laboratory Results - last 24 hr 04/22/21 15:50: Urine Color Yellow, Urine Clarity Clear, Urine pH 6.0, Ur Specific [place] 1.020, Urine Protein Negative, Urine Glucose (UA) Normal, Urine Ketones 15 H, Urine Occult Blood Negative, Urine Nitrite Negative, Urine Bilirubin Negative, Urine Urobilinogen Normal, Ur Leukocyte Esterase 25 H, Urine RBC 0 SEEN, Urine WBC 0-5 SEEN, Ur Squamous Epith Cells 0 SEEN, Urine Bacteria 1+, Hyaline Casts 10-25 SEEN, Urine Mucus 0 SEEN 04/22/21 15:52: WBC 10.2, RBC 5.18, Hgb 14.8, Hct 45.4, MCV 87.6, MCH 28.6, MCHC 32.6, RDW Std Deviation 44.4 H, RDW Coeff of Dolores 13.9, Plt Count 333, MPV 10.2, Immature Gran % (Auto) 0.500, Neut % (Auto) 81.4 H, Lymph % (Auto) 9.5 L, [place] % (Auto) 8.1, Eos % (Auto) 0.2, Baso % (Auto) 0.3, Absolute Neuts (auto) 8.3 H, Absolute Lymphs (auto) 0.97, Nucleated RBC % 0 04/22/21 16:15: Sodium 135 L, Potassium 3.9, Chloride 101, Carbon Dioxide 28.0, Anion Gap 6, BUN 11, Creatinine 0.85, Estim Creat Clear Calc 56.77, Est GFR (MDRD) Af Amer 87, Est GFR (MDRD) Non-Af 72, BUN/Creatinine Ratio 13.0, Glucose 123 H, Calcium 14.0 H*, Total Bilirubin 0.60, AST 155 H, ALT 70 H, Alkaline Phosphatase 174 H, Troponin I High Sens 7, Total Protein 7.2, Albumin 2.8 L, Globulin 4.4 H, Albumin/Globulin Ratio 0.6 L, TSH 6.90 H 04/22/21 20:10: PT 14.8, INR 1.2, APTT 28.5 04/22/21 20:10: Magnesium 2.2 04/23/21 05:40: WBC 7.8, RBC 3.97 L, Hgb 11.2 L, Hct 35.2 L, MCV 88.7, MCH 28.2, MCHC 31.8 L, RDW Std Deviation 45.1 H, RDW Coeff of Dolores 14.0, Plt Count 269, MPV 9.4, Immature Gran % (Auto) 0.500, Neut % (Auto) 80.6 H, Lymph % (Auto) 10.0 L, [place] % (Auto) 8.1, Eos % (Auto) 0.4, Baso % (Auto) 0.4, Absolute Neuts (auto) 6.3, Absolute Lymphs (auto) 0.78 L, Nucleated RBC % 0 04/23/21 05:40: Sodium 139, Potassium 3.7, Chloride 108 H, Carbon Dioxide 27.0, Anion Gap 4 L, BUN 8, Creatinine 0.61, Estim Creat Clear Calc 79.10, Est GFR (MDRD) Af Amer 128, Est GFR (MDRD) Non-Af 106, BUN/Creatinine Ratio 13.2, Glucose 88, Calcium 12.4 H, Phosphorus 2.3 L, Total Bilirubin 0.40, AST 137 H, ALT 57 H, Alkaline Phosphatase 148 H, Total Protein 6.0 L, Albumin 2.1 L, Globulin 3.9, Albumin/Globulin Ratio 0.5 L, Free T4 1.03 04/23/21 05:40: PTH Intact < 6.3 L Radiography Diagnostic Testing: Radiology Impression Head/Neck CTA 04/22/21 15:26 IMPRESSION: 1. There is mild atherosclerotic plaque formation of the origin of the right and left internal carotid artery with less than 50% cross sectional diameter stenosis. ALL ABOVE CRITERIA BY NASCET. 2. There is calcified plaque formation of the right cavernous carotid artery, with a mild stenosis (less than 50%). There is calcified plaque formation of the left cavernous carotid artery, with a mild stenosis (less than 50%). ALL ABOVE CRITERIA BY NASCET. Electronically Signed: Tony Jaeger MD at 17:39 EST , Abdomen/Pelvis CT 04/22/21 15:28 Chest X-Ray 04/22/21 17:18 IMPRESSION: There is a right pleural effusion. Electronically Signed: Tony Jaeger MD at 17:36 EST , Chest CT 04/22/21 18:05 IMPRESSION: Multiple left pulmonary nodules. Metastatic disease to the lungs is a concern. Diffuse metastatic disease to liver. There is hepatomegaly with diffuse hepatic enlargement. Small right pleural effusion. Electronically Signed: Tony Jaeger MD at 19:13 EST , Physical Exam Const alert, oriented x3 and no apparent distress Orientation / Consciousness: lethargic Exam Limitations: no limitations HEENT head/scalp atraumatic Head and Scalp: normocephalic Mouth: dry mucous membranes Eyes PERRL, EOMs intact bilaterally and conjunctivae normal Neck no lymphadenopathy Resp normal respiratory effort, no retractions, no use of accessory muscles and clear to auscultation bilaterally Cardio regular rate, regular rhythm, S1 normal heart sound, S2 normal heart sound and no murmurs GI GI Narrative: abdomen soft, moderate epigastric tenderness, no guarding or rebound tenderness. tender hepatomegaly. Extremity normal to inspection, full ROM and no clubbing, cyanosis or edema Peripheral Pulses: Yes pulses 2+ throughout Skin no rashes or lesions noted Neuro oriented x3, CN's II-XII intact bilaterally and moves all extremities Sensorium / Orientation: awake and alert Psych affect normal Assessment & Plan Assessment/Plan (1) Hypercalcemia: (2) Cancer, metastatic to liver: (3) Pleural effusion on right: PLAN: #Hypercalcemia likely due to malignancy * calcium is down to 12.4 today from 14 on admission. * continue aggressive hydration with IVF. received a dose of IV zolendronic acid * on IV lasix 40mg bid * aggressive oral hydration * #Metastatic lesions in the liver and lung * abdominopelvic CT showed diffuse metastatic disease in the liver with hepatomegaly and retroperitoneal adenopathy, and fibroid uterus visualised. * CEA antigen and CA 19-9 ordered * oncology on board. Source of primary malignancy is unclear * GI consulted for scope as patient is complaining of abdominal pain. * Liver enzymes elevated. #Abnormal TSH * TSH is 6.9 but free T4 is 1.03. This indicates subclinical hypothyroidism and may be as a result of critical illness. * To repeat labs once patient is better. #Small Right-sided pleural effusion: * Chest CT showed multiple left pulmonary nodules with metastatic disease to the lung being a concern as well as hepatomegaly with diffuse hepatic enlarg ement and small right pleural effusion * may be related to underlying malignancy also * currently on room air * DVT prophylaxis: lovenox Charges/Coding Visit Charges Inpatient E&M: 57063 Subs Hosp L3
[2021-04-23] MEDS: Acetaminophen 325 MG Tablet 650 MG PO (17:02)
--- NOTE | 2021-04-23 19:55 | CON.PCM.GI_ITS ---
HPI Consult Data Date of Consult: 04/23/21 HPI Narrative HPI Narrative: JAYLA HERNÁNDEZ, is a 60 F who presents to the ED with confusion. Patient's said that she has not been feeling herself for the past 2 months. She says that she has not seen a physician in several years and has been getting treated by her chiropractor for some worsening neck pain, back pain and overall lethargy. When she came into the ED she was normotensive, without any sign of hypoxia. Her about chemical profile only showed a mild anemia. However her liver function tests and liver enzymes were elevated. She has no history of chronic hepatitis. She got imaging of the liver that showed multiple lesions in the liver suspicious for metastatic disease. She has no previous history of cirrhosis. COUNTS INCLUDE 234 BEDS AT THE [facility] Medical History (Updated 04/22/21 @ 19:[address] Nancy Colon MD) Non-smoker Obesity Medical History no medical history Home Medications magnesium oxide 400 mg PO DAILY 04/22/21 [History Last Taken 04/21/21] Allergy/AdvReac Type Severity Reaction Status Date / Time No Known Allergies Allergy Verified 04/22/21 14:12 Family History no significant family his Surgical History Hx of appendectomy Hx of cholecystectomy Social History (Updated 04/22/21 @ 19:[address] Nancy Colon MD) household members: spouse Smoking Status: Never smoker alcohol intake: never substance use type: does not use ROS Review of Systems ROS Unobtainable: other Constitutional Constitutional: Denies fatigue, fever(s), poor appetite, weight gain or weight loss ENT HEENT: Denies mouth lesions Cardiovascular Cardiovascular: Denies abdominal bloating, abdominal edema or abdominal pain Respiratory/Chest Respiratory/Chest: Denies change in mental status, change in phlegm color, chest congestion or chest tightness Gastrointestinal Gastrointestinal: Denies belching, bloating, change in bowel habits, change in stool character, chewing difficulty, coffee ground emesis, constipation, cramping, diarrhea, dyspepsia, dysphagia, early satiety, excessive flatus, fecal incontinence, heartburn, hematemesis, hematochezia, hemorrhoids, loose stools, melena, nausea, odynophagia, rectal bleeding, tenesmus, vomiting or weight changes Genitourinary Genitourinary: Denies abdominal discomfort, burning urination or itching Musculoskeletal Musculoskeletal: Reports as per HPI; Denies muscle weakness or myalgias Integumentary Integumentary: Denies jaundice Neurologic Neurologic: Denies lack of coordination or weakness Psychiatric Psychiatric: Denies confusion, depression, memory loss, mood swings, paranoia or suicidal ideation Endocrine Endocrinology: Denies systems reviewed and no addt'l complaints, except as d ocumented Hematologic/Lymphatic Hematologic/Lymphatic: Denies anemia, easy bleeding, easy bruising or lymphadenopathy Allergic/Immunologic Allergic/Immunologic: Denies systems reviewed and no addt'l complaints, except as documented Physical Exam Const alert General Appearance: cooperative Orientation / Consciousness: oriented to person HEENT hearing grossly normal bilaterally Head and Scalp: normal to inspection Face and Sinus: face symmetric Nose: external nose normal Mouth: oral and palatal mucosa normal Eyes conjunctivae normal General Eye: normal appearance of both eyes Neck full ROM General: normal visual inspection Lymph Lymphatic: no lymphadenopathy noted Chest inspection of chest normal and palpation of chest normal Chest: symmetrical chest wall rise Resp normal respiratory effort Effort and Inspection: able to speak in complete sentences Cardio regular rate GI non-distended Percussion: normal to percussion Rectal Exam: deferred Neuro Speech: speech normal Gait (Neuro): normal gait Lab / Micro Data Result Diagrams: 04/23/21 05:40 04/23/21 05:40 Labs: Laboratory Results - last 24 hr 04/22/21 20:10: PT 14.8, INR 1.2, APTT 28.5 04/22/21 20:10: Magnesium 2.2 04/23/21 05:40: WBC 7.8, RBC 3.97 L, Hgb 11.2 L, Hct 35.2 L, MCV 88.7, MCH 28.2, MCHC 31.8 L, RDW Std Deviation 45.1 H, RDW Coeff of Dolores 14.0, Plt Count 269, MPV 9.4, Immature Gran % (Auto) 0.500, Neut % (Auto) 80.6 H, Lymph % (Auto) 10.0 L, [place] % (Auto) 8.1, Eos % (Auto) 0.4, Baso % (Auto) 0.4, Absolute Neuts (auto) 6.3, Absolute Lymphs (auto) 0.78 L, Nucleated RBC % 0 04/23/21 05:40: Sodium 139, Potassium 3.7, Chloride 108 H, Carbon Dioxide 27.0, Anion Gap 4 L, BUN 8, Creatinine 0.61, Estim Creat Clear Calc 79.10, Est GFR (MDRD) Af Amer 128, Est GFR (MDRD) Non-Af 106, BUN/Creatinine Ratio 13.2, Glucose 88, Calcium 12.4 H, Phosphorus 2.3 L, Total Bilirubin 0.40, AST 137 H, ALT 57 H, Alkaline Phosphatase 148 H, Total Protein 6.0 L, Albumin 2.1 L, Globulin 3.9, Albumin/Globulin Ratio 0.5 L, Free T4 1.03 04/23/21 05:40: PTH Intact < 6.3 L Assessment & Plan Assessment/Plan (1) Cancer, metastatic to liver: PLAN: Patient was scheduled to get liver biopsy tomorrow. She also had tumor markers sent and she is being seen oncology who will manage most of her care. Rather she undergoes liver biopsy need to undergo an EGD and colonoscopy to evaluate her upper and lower GI tract. If that is normal she can have an outpatient capsule endoscopy to look for the entire GI tract. Charges/Coding Visit Charges Inpatient E&M: 60955 Init Hosp L2
[2021-04-24] VITALS (17 sets, daily range): BP systolic 104–131; BP diastolic 53–70; PULSE 64–85; RESP 18–23; TEMP 36.4–37.3; O2SAT 93–97; BMI 34.3
--- NOTE | 2021-04-24 | ASPIGT_PTH ---
PATIENT: JAYLA HERNÁNDEZ LOC: [facility] U#:[id number] AGE/SX: 60/F ROOM: [facility] RE04/22/[address]: Dr. Luis Woodard MD : 1960 BED: 1 DIS: 04/27/2021 SPEC #: [id number] RECD: 04/24/21 11:31 STATUS: SAPPHIRE ALCALAFreddie #: [id number] SAMUEL: 04/24/21 00:[address]: Doris Llanes DEPT: SURGICAL PATHOLOGY RECD BY: Enrique Cook ENTERED: 04/24/21 11:32 SP TYPE: ASP RAD OTHR DR: MD Dr. Farida Coombs DO Dr. Kathryn Lee, DO Tissues: Liver, NOS Procedures: FNA Specimen Adequacy Gen Path Consultation (on slides) Special Stain Group II Surgery Specimen Level V Imprint (control) HEADER OPERATION: CT-guided liver biopsy PRE-OP DIAGNOSIS: Liver mass TISSUE SUBMITTED: Liver 18-gauge core x5 MICROSCOPIC DIAGNOSIS Liver, CT-guided core biopsy: Poorly differentiated adenocarcinoma. See comment. SJ:julien 05/04/2021 COMMENT The specimen is evaluated at the time of biopsy by Dr. Vela. Immediate Evaluation = Malignant cells present. The specimen is sent to [facility] for expert opinion, reviewed by Dr. Guallpa and the above diagnosis is rendered. The complete report is viewable in the patient's EMR. Immunohistochemistry performed here ([id number]) and additional immunohistochemical stains performed at [facility] supports the above diagnosis. Dr. Guallpa also commented ?the immunohistochemical results are not entirely specific; however, Dr. Guallpa favor primary source of cholangiocarcinoma, extrahepatic pancreatic or upper GI tract carcinoma. Breast carcinoma cannot be entirely excluded.? Case has been reviewed in consultation with Dr. Perkins who concurs with the above diagnosis. IDC:AM MICROSCOPIC DESCRIPTION Slides are reviewed. GROSS DESCRIPTION Received in fixative is one container labeled with the patient's name and designated liver, CT-guided core biopsy. The specimen consists of five elongated pieces of salgado soft tissue each measuring 1.5 cm in length and 0.1 cm in diameter. Two touch imprints are prepared at the time of core biopsy. The entire specimen is submitted in one cassette. / MARLO:julien 04/24/2021 TC:0 CPT: 88638, 07315
--- NOTE | 2021-04-24 | IMM_PTH ---
PATIENT: JAYLA HERNÁNDEZ LOC: [facility] U#:[id number] AGE/SX: 60/F ROOM: [facility] RE04/22/[address]: Dr. Luis Woodard MD : 1960 BED: 1 DIS: 04/27/2021 SPEC #: [id number] RECD: 04/24/21 13:08 STATUS: SAPPHIRE REFreddie #: [id number] SAMUEL: 04/24/21 00:[address]: Doris Llanes DEPT: IMMUNOHISTOCHEMISTRY RECD BY: Rody Moser ENTERED: 04/24/21 13:09 SP TYPE: IMMUNO OTHR DR: MD Dr. Farida Coombs, DO Dr. Bette Villatoro, DO Tissues: Liver, NOS Procedures: RCC (add) NAPSIN A (add) CA-125 (add) Weston Ret (add) CK20 (add) CK5-6 (add) CK7 (add) CK8 (add) E-CAD (add) HEP PAR (add) HER2 ARGELIA (add) MAMM (add) CA (add) TTF1 (add) Vimentin (add) Pankeratin (add) GATA3 (add) P40 (add) ER (initial) PHYSICIAN & [place] [id number] SPECIMEN INFORMATION: Tissue Source: Right lobe of liver, CT-guided core biopsy Clinical Info: Fatty liver Specimen Number: [id number] CPT code: 89126, 76912 x18 METHODOLOGY: Deparaffinized sections of prefer/formalin-fixed tissue or PAP/DQ stained slides are incubated with monoclonal/polyclonal antibodies/oligonucleotide probes. Localization is made via biotin free immunoperoxidase method. Appropriate controls are performed and reacted as expected. Results on target cell population are indicated in the following table: RESULTS: ANTIBODY / CLONE RESULT ER (6F11) negative CA (1E2) positive (15%, weak) AE1-3 (AE1/AE3/PCK26) positive CK7 (OV-TL12/30) positive CK8 (43cpegQ18) positive CK20 (KS20.8) negative TTF-1 (8G7G3/1) negative Napsin A (Rabbit Polyclonal) negative HepPar (OCh1E5) negative RCC (PN-15) negative CK5-6 (D5 & 1684) negative P40 (BC28) negative Mammaglobin (31A5) positive, weak GATA3 (L50-823) positive, weak, rare cells CA125 (OC125) positive, focal Vimentin (V9) positive Her-2neu (CB11) negative (0) E-Cad (ECH-6) positive CALRET (polyclonal) positive, focal These tests were developed and their performance characteristics determined by [facility]. They may not have been cleared or approved by the U.S. Food and Drug Administration. The FDA has determined that such clearance or approval is not necessary. The above immunohistochemical/dualISH markers are ordered and reviewed by the Pathologist. INTERPRETATION: Right lobe of liver, CT-guided core biopsy: Poorly differentiated adenocarcinoma. See comment. SJ:julien 05/04/2021 Comment: The specimen sent to [facility] for expert opinion and reviewed by Dr. Guallpa and additional immunohistochemical stains performed there supports the above diagnosis. Dr. Guallpa also commented that immunohistochemical staining results are not entirely specific, but favors primary source of cholangiocarcinoma, extrahepatic pancreatic or upper GI tract carcinoma. Breast carcinoma cannot be completely excluded. Case has been reviewed in consultation with Dr. Perkins who concurs with the above diagnosis. IDC:NIA
[2021-04-24] MEDS: Acetaminophen 325 MG Tablet 650 MG PO ×2 (02:18→15:32)
[2021-04-24] MEDS: 0.9% Normal Saline 1,000 ML 200 ML IV ×3 (02:25→12:30)
[2021-04-24 05:26] LABS: Absolute Lymphocyte Count 0.51 X10^3/uL (0.83-4.51); Absolute Neutrophil Count 6.3 X10^3/uL (2.0-7.7); Basophil# 0.02 X10^3/uL; Basophil% 0.3 % (0-1); Eosinophil# 0.05 X10^3/uL; Eosinophils% 0.7 % (0-5); Hematocrit 31.9 % (37-47); Hemoglobin 10.2 g/dL (12.0-15.0); Lymphocyte # 0.51 X10^3/ul (0.83-4.51); Lymphocyte % 6.8 % (19-41); Mean Corpuscular Hgb 28.5 pg (27.0-32.0); Mean Corpuscular Volume 89.1 fL (81-99); Mean Platelet Vol. 9.5 fl (6.2-12.0); Monocyte# 0.53 X10^3/uL; Monocyte% 7.1 % (0-10); NRBC Flagged by Analyzer 0 % (0-5); Neutrophil # 6.33 X10^3/uL (2.7-7.7); Neutrophil % 84.2 % (47-70); POSITIVE DIFFERENTIAL YES; Platelet Count 236 K/mm3 (150-450); RBC Distribution Width CV 14.1 % (11.6-14.6); Red Blood Count 3.58 M/mm3 (4.2-5.4); White Blood Count 7.5 K/mm3 (4.4-11.0)
[2021-04-24 05:39] LABS: Differential Indicated SCAN CRITERIA MET
[2021-04-24 05:46] LABS: Anion Gap 3 (5-15); BUN 7 mg/dL (7-18); Calcium,Total 10.6 mg/dL (8.5-10.1); Chloride 109 mmol/L (98-107); EST Glomerular Filtration Rate 91 mL/min (>60); Est Glom Filt Rate - Afr Amer 110 mL/min (>60); Estimated Creatinine Clearance 68.93 ml/min; Glucose 112 mg/dL (74-106); Potassium 3.2 mmol/L (3.5-5.1); Sodium Level 139 mmol/L (136-145)
[2021-04-24] MEDS: Midazolam 2 MG/2 ML Syringe IV (09:58)
[2021-04-24] MEDS: fentaNYL 100 MCG/2 ML Ampul IV (09:59)
--- NOTE | 2021-04-24 10:00 | CT_ITS ---
PROCEDURE: CT DIRECTED CORE LIVER BIOPSY INDICATION: Female, 60 years old. LIVER METS PHYSICIAN: Dr. VIRGINIA Penaloza CONSENT: Written informed consent was obtained having explained the risks, benefits and alternatives in detail with the patient who accepted the risks and agreed to proceed. Laboratory review and clinical assessment was performed. CONSCIOUS SEDATION PROTOCOL: The Drugs used were: 2 mg Versed, IV., and 50 mcg Fentanyl, IV. The sedation time was: 21 minutes. Conscious sedation was started at 9:59 AM and terminated at 10:20 AM. The conscious sedation protocol was independently monitored. RADIATION DOSAGE (If Supplied By Facility): CTDIvol = ( 27 ) mGy, DLP = ( 895.13 ) mGycm Individualized dose optimization techniques were used for this CT. TECHNIQUE: Using CT image guidance with image documentation, a suitable location in the right lobe of the liver was identified. Using an anterior approach, puncture of the liver was uneventful with an 18-gauge core needle system. 5, 18-gauge core samples were obtained, and submitted in formalin to the pathologist for further assessment. Followup CT scan revealed no distinct sequelae. CT/Biopsy/Inj or Needle Placement IMPRESSION: 1. CT directed core needle biopsy of the liver, using CT image guidance with image documentation as described. 2. Conscious Sedation protocol utilized with independent monitoring. Electronically Signed: Suman Mayen MD at 10:55 EST ,
[2021-04-24] MEDS: Lidocaine 2% (20 ml mdv) 20 ML Vial INFILT (10:10)
--- NOTE | 2021-04-24 11:14 | CASEMGMT ---
Social Work Attempted to see patient to follow up for support for new cancer diagnosis and self-pay status. Patient out of room at a procedure. Patient daughter present, support provided to daughter. 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 Patient daughterMarilee reports that patient was independent and doing well prior to the pasts few months. Social work to continue to follow. Chikis Stoner MSW, MAY
[2021-04-24] MEDS: Furosemide 40 MG/4 ML Vial IV (11:21)
[2021-04-24] MEDS: Polyethylene Glycol 3350 17 GM PACKET PO (11:21)
[2021-04-24] MEDS: Docusate Sodium 100 MG Capsule PO ×2 (11:21→20:58)
[2021-04-24] MEDS: Potassium Chloride Oral Tablet 20 MEQ 40 MEQ PO (11:21)
--- NOTE | 2021-04-24 13:10 | PN.HOSP_ITS ---
Subjective Subjective Patient seen and examined. She still complains of abdominal pain. She has no other acute complaints. She is not vomiting once yesterday she has not vomited again. She denies any fever, chills, or any other symptoms. Review of systems otherwise negative. She has remained hemodynamically stable. She is for liver biopsy today. Objective Data Objective Data Vital Signs: Vital Signs Temp Pulse Resp BP Pulse Ox 97.5 F L 68 18 115/61 95 04/24/21 11:19 04/24/21 11:19 04/24/21 11:19 04/24/21 11:19 04/24/21 11:19 Oxygen Flow Rate (L/min) [5] 2 Oxygen Flow Rate (L/min) [4] 2 Oxygen Flow Rate (L/min) [3] 2 Oxygen Flow Rate (L/min) [2] 2 Oxygen Flow Rate (L/min) [1 ( 2 Initial Baseline)] Oxygen Flow Rate (L/min) 2 Oxygen Delivery Method [5] Nasal Cannula Oxygen Delivery Method [4] Nasal Cannula Oxygen Delivery Method [3] Nasal Cannula Oxygen Delivery Method [2] Nasal Cannula Oxygen Delivery Method [1 ( Nasal Cannula Initial Baseline)] Oxygen Delivery Method Room Air Weight: 194 lb 0.108 oz Body Mass Index (BMI) 34.3 Intake & Output: Intake and Output for Last 24 Hours 04/22/21 04/23/21 04/24/21 23:59 23:59 23:59 Intake Total 1158.33 / 1398.33 5306.67 / 5306.67 3410.00 / 3410.00 Output Total 450 / 450 450 / 450 Balance 1158.33 / 1398.33 4856.67 / 4856.67 2960.00 / 2960.00 Lab / Micro Data Result Diagrams: 04/24/21 04:50 04/24/21 04:50 Labs: Laboratory Results - last 24 hr 04/24/21 04:50: WBC 7.5, RBC 3.58 L, Hgb 10.2 L, Hct 31.9 L, MCV 89.1, MCH 28.5, MCHC 32.0, RDW Std Deviation 46.0 H, RDW Coeff of Dolores 14.1, Plt Count 236, MPV 9.5, Immature Gran % (Auto) 0.900, Neut % (Auto) 84.2 H, Lymph % (Auto) 6.8 L, [place] % (Auto) 7.1, Eos % (Auto) 0.7, Baso % (Auto) 0.3, Absolute Neuts (auto) 6.3, Absolute Lymphs (auto) 0.51 L, Nucleated RBC % 0 04/24/21 04:50: Sodium 139, Potassium 3.2 L, Chloride 109 H, Carbon Dioxide 27.0, Anion Gap 3 L, BUN 7, Creatinine 0.70, Estim Creat Clear Calc 68.93, Est GFR (MDRD) Af Amer 110, Est GFR (MDRD) Non-Af 91, BUN/Creatinine Ratio 10.0, Glucose 112 H, Calcium 10.6 H Radiography Diagnostic Testing: Radiology Impression Biopsy CT 04/24/21 10:00 IMPRESSION: 1. CT directed core needle biopsy of the liver, using CT image guidance with image documentation as described. 2. Conscious Sedation protocol utilized with independent monitoring. Electronically Signed: Suman Mayen MD at 10:55 EST , Physical Exam Const alert, oriented x3 and no apparent distress General Appearance: cooperative Exam Limitations: no limitations HEENT normocephalic and head/scalp atraumatic Head and Scalp: normocephalic Mouth: dry mucous membranes Eyes PERRL, EOMs intact bilaterally, conjunctivae normal and no scleral icterus Neck no lymphadenopathy and supple General: trachea midline Resp normal respiratory effort, normal air movement, no retractions, no use of accessory muscles and clear to auscultation bilaterally Cardio regular rate, regular rhythm, S1 normal heart sound, S2 normal heart sound, no murmurs and peripheral pulses 2+ throughout GI GI Narrative: abdomen soft, moderate epigastric tenderness, no guarding or rebound tenderness. tender hepatomegaly. Inspection: abdominal distention Auscultation: normoactive bowel sounds Palpation: tender epigastric, LUQ and RUQ and hepatomegaly Extremity normal to inspection, full ROM, normal capillary refill and no clubbing, cyanosis or edema General Extremity: no tenderness to palpation of joints or extremities Skin no rashes or lesions noted General Skin Exam: no breakdown and turgor normal Lesions: no lesions Rashes: no rashes Neuro oriented x3, CN's II-XII intact bilaterally, moves all extremities, no focal motor deficits and no sensory deficits noted Sensorium / Orientation: awake, alert and confused Coordination / Balance: uqpcwj-tu-jkee test normal and ktiq-gx-gddt test normal Psych cooperative and affect normal Mood & Affect: tearful Thought Process: confused Assessment & Plan Assessment/Plan (1) Hypercalcemia: (2) Cancer, metastatic to liver: (3) Pleural effusion on right: PLAN: #Hypercalcemia likely due to malignancy * calcium is down to 10.6 today * will cut down on IVF and dc lasix * continue aggressive oral hydration * PTH was low at <6.3 * #Metastatic lesions in the liver and lung * abdominopelvic CT showed diffuse metastatic disease in the liver with hepatomegaly and retroperitoneal adenopathy, and fibroid uterus visualised. * CEA antigen and CA 19-9 ordered and pending * oncology on board. Source of primary malignancy is unclear * for liver biposy today. * GI on board; awaiting EGD and colonoscopy. * GI consulted for scope as patient is complaining of abdominal pain. * Liver enzymes elevated. #Hypokalemia: Potassium is 3.2. Will replace and trend. #Abnormal TSH * TSH is 6.9 but free T4 is 1.03. This indicates subclinical hypothyroidism and may be as a result of critical illness. * To repeat labs once patient is better. #Small Right-sided pleural effusion: * Chest CT showed multiple left pulmonary nodules with metastatic disease to the lung being a concern as well as hepatomegaly with diffuse hepatic enlargement and small right pleural effusion * may be related to underlying malignancy also * currently on room air * DVT prophylaxis: lovenox Charges/Coding Visit Charges Inpatient E&M: 78698 Subs Hosp L2
[2021-04-24] MEDS: 0.9% Normal Saline 1,000 ML 100 ML IV ×2 (13:32→21:47)
--- NOTE | 2021-04-24 18:05 | PCM.PROGNOTE ---
Subjective Subjective She still complains of abdominal pain and bloating. she underwent a diagnostic biopsy today. She has no other acute complaints. She denies any pain associated with abdominal biopsy. She does complain of some mild nausea. Objective Data Objective Data Vital Signs: Vital Signs Temp Pulse Resp BP Pulse Ox 99.2 F H 81 18 117/61 96 04/24/21 15:35 04/24/21 15:35 04/24/21 15:35 04/24/21 15:35 04/24/21 15:35 Oxygen Flow Rate (L/min) [5] 2 Oxygen Flow Rate (L/min) [4] 2 Oxygen Flow Rate (L/min) [3] 2 Oxygen Flow Rate (L/min) [2] 2 Oxygen Flow Rate (L/min) [1 ( 2 Initial Baseline)] Oxygen Flow Rate (L/min) 2 Oxygen Delivery Method [5] Nasal Cannula Oxygen Delivery Method [4] Nasal Cannula Oxygen Delivery Method [3] Nasal Cannula Oxygen Delivery Method [2] Nasal Cannula Oxygen Delivery Method [1 ( Nasal Cannula Initial Baseline)] Oxygen Delivery Method Room Air Weight: 194 lb 0.108 oz Body Mass Index (BMI) 34.3 Intake & Output: Intake and Output for Last 24 Hours 04/22/21 04/23/21 04/24/21 23:59 23:59 23:59 Intake Total 1158.33 / 1398.33 5306.67 / 5306.67 3603.33 / 3603.33 Output Total 450 / 450 450 / 450 Balance 1158.33 / 1398.33 4856.67 / 4856.67 3153.33 / 3153.33 Lab / Micro Data Result Diagrams: 04/24/21 04:50 04/24/21 04:50 Labs: Laboratory Results - last 24 hr 04/24/21 04:50: WBC 7.5, RBC 3.58 L, Hgb 10.2 L, Hct 31.9 L, MCV 89.1, MCH 28.5, MCHC 32.0, RDW Std Deviation 46.0 H, RDW Coeff of Dolores 14.1, Plt Count 236, MPV 9.5, Immature Gran % (Auto) 0.900, Neut % (Auto) 84.2 H, Lymph % (Auto) 6.8 L, [place] % (Auto) 7.1, Eos % (Auto) 0.7, Baso % (Auto) 0.3, Absolute Neuts (auto) 6.3, Absolute Lymphs (auto) 0.51 L, Nucleated RBC % 0 04/24/21 04:50: Sodium 139, Potassium 3.2 L, Chloride 109 H, Carbon Dioxide 27.0, Anion Gap 3 L, BUN 7, Creatinine 0.70, Estim Creat Clear Calc 68.93, Est GFR (MDRD) Af Amer 110, Est GFR (MDRD) Non-Af 91, BUN/Creatinine Ratio 10.0, Glucose 112 H, Calcium 10.6 H Radiography Diagnostic Testing: Radiology Impression Biopsy CT 04/24/21 10:00 IMPRESSION: 1. CT directed core needle biopsy of the liver, using CT image guidance with image documentation as described. 2. Conscious Sedation protocol utilized with independent monitoring. Electronically Signed: Suman Mayen MD at 10:55 EST Reading Location ID and State: [facility] / [place] , Service support , Physical Exam GI Palpation: soft Assessment & Plan Assessment/Plan (1) Cancer, metastatic to liver: PLAN: I will schedule her for an EGD and colonoscopy tomorrow. Hopefully will be able to find a primary lesion to aid in the expedite diagnosis and treatment. Charges/Coding Visit Charges Inpatient E&M: 08508 Subs Hosp L2
[2021-04-24] MEDS: Bisacodyl 5 MG Tablet 20 MG PO (18:32)
[2021-04-24 20:50] LABS: Carbohydrate Ag 19-9 2261 44 U/mL (0-35); Carcinoembryonic Antigen 33.8 ng/mL (0.0-4.7)
[2021-04-24] MEDS: Electrolyte Solution/Peg's 4000 ML PO (20:56)
[2021-04-25] VITALS (17 sets, daily range): BP systolic 105–135; BP diastolic 55–70; PULSE 80–116; RESP 16–28; TEMP 36.4–38.3; O2SAT 91–98; BMI 33.6
--- NOTE | 2021-04-25 | COLBX_PTH ---
PATIENT: JAYLA HERNÁNDEZ LOC: [facility] U#:[id number] AGE/SX: 60/F ROOM: [facility] RE04/22/[address]: Dr. Luis Woodard MD : 1960 BED: 1 DIS: 04/27/2021 SPEC #: [id number] RECD: 04/25/21 10:05 STATUS: SAPPHIRE KEARNEY #: [id number] SAMUEL: 04/25/21 00:[address]: Finn Long DEPT: SURGICAL PATHOLOGY RECD BY: Tye Davila ENTERED: 04/27/21 11:22 SP TYPE: COLON BX OTHR DR: MD Dr. Farida Coombs DO Dr. Kathryn Lee, DO Dr. Nicholas F Kotsonis, MD Tissues: A - Duodenum, NOS B - Cecum, NOS C - Sigmoid colon biopsy Procedures: Surgery Specimen Level IV Comments: @ Ordering doctor for SUIV edited from to @ by DULCE at 04/27/21 1503 @ Submitting doctor edited from to @ by RGOOD at 04/27/21 1503 HEADER OPERATION: Colonoscopy, EGD ([facility] [place]) PRE-OP DIAGNOSIS: Cancer, metastatic to liver TISSUE SUBMITTED: A ? Duodenum biopsy, B ? Cecal polyp biopsy, C ? Sigmoid polyp biopsy MICROSCOPIC DIAGNOSIS A. Duodenum, biopsy: Fragments of duodenal mucosa with mild nonspecific chronic inflammation. B. Cecal polyp, biopsy: Fragments of tubular adenoma. C. Sigmoid polyp, biopsy: Fragments of tubular adenoma. SJ:julien 04/28/2021 MICROSCOPIC DESCRIPTION Slides are reviewed. GROSS DESCRIPTION A - Received in fixative is one container labeled with the patient's name and designated duodenum biopsy. The specimen consists of two irregular fragments of light salgado soft tissue that in aggregate measure 0.6 x 0.3 x 0.1 cm. The specimen is totally submitted in one cassette. B - Received in fixative is one container labeled with the patient's name and designated cecal polyp biopsy. The specimen consists of two irregular fragments of light salgado soft tissue that in aggregate measure 0.6 x 0.4 x 0.1 cm. The specimen is totally submitted in one cassette. C - Received in fixative is one container labeled with the patient's name and designated sigmoid polyp biopsy. The specimen consists of multiple irregular fragments of light salgado soft tissue that in aggregate measure 1.5 x 0.3 x 0.1 cm. The specimen is totally submitted in one cassette. / MARLO:julien 04/27/2021 TC:1 CPT: 94464 x3
[2021-04-25 06:11] LABS: Absolute Lymphocyte Count 0.82 X10^3/uL (0.83-4.51); Absolute Neutrophil Count 7.6 X10^3/uL (2.0-7.7); Basophil# 0.03 X10^3/uL; Basophil% 0.3 % (0-1); Eosinophil# 0.08 X10^3/uL; Eosinophils% 0.8 % (0-5); Hematocrit 32.8 % (37-47); Hemoglobin 10.4 g/dL (12.0-15.0); Lymphocyte # 0.82 X10^3/ul (0.83-4.51); Lymphocyte % 8.6 % (19-41); Mean Corp Hgb Conc 31.7 g/dL (32-36); Mean Corpuscular Hgb 27.5 pg (27.0-32.0); Mean Corpuscular Volume 86.8 fL (81-99); Mean Platelet Vol. 9.5 fl (6.2-12.0); Monocyte% 9.4 % (0-10); NRBC Flagged by Analyzer 0 % (0-5); Neutrophil # 7.64 X10^3/uL (2.7-7.7); Neutrophil % 80.1 % (47-70); Platelet Count 251 K/mm3 (150-450); RBC Distribution Width CV 14.1 % (11.6-14.6); RBC Distribution Width SD 44.7 fl (35.1-43.9); Red Blood Count 3.78 M/mm3 (4.2-5.4); White Blood Count 9.6 K/mm3 (4.4-11.0)
[2021-04-25 06:59] LABS: Anion Gap 6 (5-15); BUN 6 mg/dL (7-18); BUN/Creat Ratio 10.7 RATIO (10-20); Calcium,Total 9.7 mg/dL (8.5-10.1); Chloride 107 mmol/L (98-107); Creatinine, Serum 0.56 mg/dL (0.55-1.02); EST Glomerular Filtration Rate 117 mL/min (>60); Est Glom Filt Rate - Afr Amer 141 mL/min (>60); Estimated Creatinine Clearance 86.16 ml/min; Glucose 120 mg/dL (74-106); Potassium 3.5 mmol/L (3.5-5.1); Sodium Level 139 mmol/L (136-145)
--- NOTE | 2021-04-25 08:05 | OP.CCLET_ITS ---
11/30/2021 Farida Garrison [address] [place] [address] Re : Upper GI endoscopy procedure for Annemarie Cobos Dear Dr. Garrison This procedure was performed on Sunday, April 25, 2021. My impressions and recommendations are as follows: Impressions : - LA Grade A reflux esophagitis. - A large amount of food (residue) in the stomach. - Duodenitis. Biopsied. Recommendations : - Return patient to the floor. - Resume previous diet. - Continue present medications. - Await pathology results. My findings are described in the full procedure note, which is enclosed. If I can be of further assistance, please feel free to contact me at . Sincerely, Finn Long, 04/25/2021 8:04:43 AM This report has been signed electronically.
--- NOTE | 2021-04-25 08:05 | OP.EGD_ITS ---
Patient Name: Annemarie Cobos Procedure Date: 04/25/2021 7:10 AM Date of : 1960 Age: 60 Procedure: Upper GI endoscopy Indications: Abnormal CT of the GI tract Providers: Finn Long DO Medicines: See the Anesthesia note for documentation of the administered medications Patient Profile: This is a 60 year old female. Refer to note in patient chart for documentation of history and physical. Patient has symptoms of acute abdominal cramping and acute abdominal distention. Complications: No immediate complications. Procedure: Pre-Anesthesia Assessment: - Prior to the procedure, a History and Physical was performed, and patient medications and allergies were reviewed. The risks and benefits of the procedure and the sedation options and risks were discussed with the patient. All questions were answered and informed consent was obtained. Patient identification and proposed procedure were verified by the physician in the pre-procedure area. Mental Status Examination: alert and oriented. Airway Examination: normal oropharyngeal airway and neck mobility. Respiratory Examination: clear to auscultation. CV Examination: normal. Prophylactic Antibiotics: The patient does not require prophylactic antibiotics. Prior Anticoagulants: The patient has taken no previous anticoagulant or antiplatelet agents. ASA Grade Assessment: II - A patient with mild systemic disease. After reviewing the risks and benefits, the patient was deemed in satisfactory condition to undergo the procedure. The anesthesia plan was to use moderate sedation / analgesia (conscious sedation). Immediately prior to administration of medications, the patient was re-assessed for adequacy to receive sedatives. The heart rate, respiratory rate, oxygen saturations, blood pressure, adequacy of pulmonary ventilation, and response to care were monitored throughout the procedure. The physical status of the patient was re-assessed after the procedure. After obtaining informed consent, the endoscope was passed under direct vision. Throughout the procedure, the patient's blood pressure, pulse, and oxygen saturations were monitored continuously. The gastroscope was introduced through the mouth, and advanced to the second part of duodenum. The upper GI endoscopy was accomplished without difficulty. The patient tolerated the procedure well. Moderate Sedation: Moderate (conscious) sedation was administered by the endoscopy nurse and supervised by the endoscopist. The following parameters were monitored: oxygen saturation, heart rate, blood pressure, and response to care. Total physician intraservice time was 15 minutes. Scope In: 7:55:43 AM Scope Out: 8:00:52 AM Total Procedure Duration Time 0 hours 5 minutes 9 seconds Findings: LA Grade A (one or more mucosal breaks less than 5 mm, not extending between tops of 2 mucosal folds) esophagitis with no bleeding was found 34 to 35 cm from the incisors. A large amount of food (residue) was found in the gastric fundus, in the gastric body and on the lesser curvature of the stomach. Patchy mild inflammation characterized by erosions was found in the second portion of the duodenum. Biopsies were taken with a cold forceps for histology. Verification of patient identification for the specimen was done. Estimated blood loss was minimal. Impression: - LA Grade A reflux esophagitis. - A large amount of food (residue) in the stomach. - Duodenitis. Biopsied. Recommendation: - Return patient to the floor. - Resume previous diet. - Continue present medications. - Await pathology results. Procedure Code(s): --- Professional --- 96048, Esophagogastroduodenoscopy, flexible, transoral; with biopsy, single or multiple 94997, 59, Moderate sedation services provided by the same physician or other qualified health resident care director performing the diagnostic or therapeutic service that the sedation supports, requiring the presence of an independent trained observer to assist in the monitoring of the patient's level of consciousness and physiological status; initial 15 minutes of intraservice time, patient age 5 years or older CPT copyright 2017 [employer]. All rights reserved. The codes documented in this report are preliminary and upon manager combination review may be revised to meet current compliance requirements. Finn Long DO 04/25/2021 8:04:43 AM This report has been signed electronically. Number of Addenda: 1 Note Initiated On: 04/25/2021 7:10 AM Addendum Number: 1 Addendum Date: 11/30/2021 6:51:29 AM MAC was used for sedation during this procedure. Finn Long DO 11/30/2021 6:51:35 AM This report has been signed electronically.
--- NOTE | 2021-04-25 08:45 | OP.COLON_ITS ---
Patient Name: Annemarie Cobos Procedure Date: 04/25/2021 8:01 AM Date of : 1960 Age: 60 Procedure: Colonoscopy Indications: Abnormal CT of the GI tract Providers: Finn Long DO Medicines: See the Anesthesia note for documentation of the administered medications Patient Profile: This is a 60 year old female. Refer to note in patient chart for documentation of history and physical. Patient has symptoms of acute abdominal cramping and acute abdominal distention. Last Colonoscopy: date unknown. Unable to locate last colonoscopy report. Complications: No immediate complications. Procedure: Pre-Anesthesia Assessment: - Prior to the procedure, a History and Physical was performed, and patient medications and allergies were reviewed. The risks and benefits of the procedure and the sedation options and risks were discussed with the patient. All questions were answered and informed consent was obtained. Patient identification and proposed procedure were verified by the physician in the pre-procedure area. Mental Status Examination: alert and oriented. Airway Examination: normal oropharyngeal airway and neck mobility. Respiratory Examination: clear to auscultation. CV Examination: normal. Prophylactic Antibiotics: The patient does not require prophylactic antibiotics. Prior Anticoagulants: The patient has taken no previous anticoagulant or antiplatelet agents. ASA Grade Assessment: II - A patient with mild systemic disease. After reviewing the risks and benefits, the patient was deemed in satisfactory condition to undergo the procedure. The anesthesia plan was to use moderate sedation / analgesia (conscious sedation). Immediately prior to administration of medications, the patient was re-assessed for adequacy to receive sedatives. The heart rate, respiratory rate, oxygen saturations, blood pressure, adequacy of pulmonary ventilation, and response to care were monitored throughout the procedure. The physical status of the patient was re-assessed after the procedure. After I obtained informed consent, the scope was passed under direct vision. Throughout the procedure, the patient's blood pressure, pulse, and oxygen saturations were monitored continuously. The Colonoscope was introduced through the anus and advanced to the cecum, identified by appendiceal orifice and ileocecal valve. The colonoscopy was performed without difficulty. The patient tolerated the procedure well. The quality of the bowel preparation was fair. Moderate Sedation: Moderate (conscious) sedation was administered by the endoscopy nurse and supervised by the endoscopist. The patient's oxygen saturation, heart rate, blood pressure and response to care were monitored. Total physician intraservice time was 15 minutes. Scope In: 8:07:09 AM Scope Withdrawal Time 0 hours 12 minutes 33 seconds Scope Out: 8:30:48 AM Total Procedure Duration Time 0 hours 23 minutes 39 seconds Findings: The perianal and digital rectal examinations were normal. Two sessile polyps were found in the sigmoid colon and cecum. The polyps were 1 to 2 mm in size. These polyps were removed with a hot snare. Resection and retrieval were complete. Verification of patient identification for the specimen was done. Estimated blood loss was minimal. A small amount of stool was found in the rectum, in the recto-sigmoid colon, in the sigmoid colon and in the transverse colon, precluding visualization. Lavage of the area was performed using a moderate amount of sterile water, resulting in incomplete clearance with fair visualization. Impression: - Preparation of the colon was fair. - Two 1 to 2 mm polyps in the sigmoid colon and in the cecum, removed with a hot snare. Resected and retrieved. - Stool in the rectum, in the recto-sigmoid colon, in the sigmoid colon and in the transverse colon. Recommendation: - [facility]. - Resume previous diet. - Continue present medications. - Await pathology results. - Repeat colonoscopy in 3 years for surveillance of multiple polyps. Procedure Code(s): --- Professional --- 86190, Colonoscopy, flexible; with removal of tumor(s), polyp(s), or other lesion(s) by snare technique 69935, 59, Moderate sedation services provided by the same physician or other qualified health career discovery teacher performing the diagnostic or therapeutic service that the sedation supports, requiring the presence of an independent trained observer to assist in the monitoring of the patient's level of consciousness and physiological status; initial 15 minutes of intraservice time, patient age 5 years or older CPT copyright 2017 [employer]. All rights reserved. The codes documented in this report are preliminary and upon perinatal instructor review may be revised to meet current compliance requirements. Finn Long DO 04/25/2021 8:44:45 AM This report has been signed electronically. Number of Addenda: 1 Note Initiated On: 04/25/2021 8:01 AM Addendum Number: 1 Addendum Date: 11/30/2021 6:51:43 AM MAC was used for sedation during this procedure. Finn Long DO 11/30/2021 6:51:51 AM This report has been signed electronically.
--- NOTE | 2021-04-25 08:46 | OP.CCLET_ITS ---
11/30/2021 Fardia Garrison [address] [place] [address] Re : Colonoscopy procedure for Annemarie Cobos Dear Dr. Garrison This procedure was performed on Sunday, April 25, 2021. My impressions and recommendations are as follows: Impressions : - Preparation of the colon was fair. - Two 1 to 2 mm polyps in the sigmoid colon and in the cecum, removed with a hot snare. Resected and retrieved. - Stool in the rectum, in the recto-sigmoid colon, in the sigmoid colon and in the transverse colon. Recommendations : - [facility]. - Resume previous diet. - Continue present medications. - Await pathology results. - Repeat colonoscopy in 3 years for surveillance of multiple polyps. My findings are described in the full procedure note, which is enclosed. If I can be of further assistance, please feel free to contact me at . Sincerely, Finn Long, 04/25/2021 8:44:45 AM This report has been signed electronically.
[2021-04-25 12:18] LABS: Magnesium 2.2 mg/dL (1.6-2.6)
--- NOTE | 2021-04-25 13:19 | PN.HOSP_ITS ---
Subjective Subjective Patient seen and examined. Her was by her bedside. She complained of feeling weak and tired. She has just come back from having the EGD and colonoscopy. She denied any nausea or vomiting, still had the epigastric pain. Review of systems otherwise negative. EGD showed duodenitis and reflux esophagitis which was biopsied. Colonscopy also showed some polyps which were resected. Objective Data Objective Data Vital Signs: Vital Signs Temp Pulse Resp BP Pulse Ox 98.3 F 80 16 120/65 93 04/25/21 11:35 04/25/21 11:35 04/25/21 11:35 04/25/21 11:35 04/25/21 11:35 Oxygen Flow Rate (L/min) [5] 2 Oxygen Flow Rate (L/min) [4] 2 Oxygen Flow Rate (L/min) [3] 2 Oxygen Flow Rate (L/min) [2] 2 Oxygen Flow Rate (L/min) [1 ( 2 Initial Baseline)] Oxygen Flow Rate (L/min) 2 Oxygen Delivery Method [5] Nasal Cannula Oxygen Delivery Method [4] Nasal Cannula Oxygen Delivery Method [3] Nasal Cannula Oxygen Delivery Method [2] Nasal Cannula Oxygen Delivery Method [1 ( Nasal Cannula Initial Baseline)] Oxygen Delivery Method Room Air Weight: 190 lb Body Mass Index (BMI) 33.6 Intake & Output: Intake and Output for Last 24 Hours 04/23/21 04/24/21 04/25/21 23:59 23:59 23:59 Intake Total 5306.67 / 5306.67 4928.33 / 5428.33 0 / 2120 Output Total 450 / 450 450 / 450 3 / 3 Balance 4856.67 / 4856.67 4478.33 / 4978.33 7 / 2117 Lab / Micro Data Result Diagrams: 04/25/21 05:36 04/25/21 05:36 Labs: Laboratory Results - last 24 hr 04/22/21 20:10: Carcinoembryonic Ag 33.8 H, CA 19-9 Serial Monitor Not Reportable, CA 125 Antigen 377.0 H 04/22/21 20:10: CA 19-9 Serial Monitor 44 H 04/22/21 20:10: Magnesium 2.2 04/25/21 05:36: WBC 9.6, RBC 3.78 L, Hgb 10.4 L, Hct 32.8 L, MCV 86.8, MCH 27.5, MCHC 31.7 L, RDW Std Deviation 44.7 H, RDW Coeff of Dolores 14.1, Plt Count 251, MPV 9.5, Immature Gran % (Auto) 0.800, Neut % (Auto) 80.1 H, Lymph % (Auto) 8.6 L, [place] % (Auto) 9.4, Eos % (Auto) 0.8, Baso % (Auto) 0.3, Absolute Neuts (auto) 7.6, Absolute Lymphs (auto) 0.82 L, Nucleated RBC % 0 04/25/21 05:36: Sodium 139, Potassium 3.5, Chloride 107, Carbon Dioxide 26.0, Anion Gap 6, BUN 6 L, Creatinine 0.56, Estim Creat Clear Calc 86.16, Est GFR (MDRD) Af Amer 141, Est GFR (MDRD) Non-Af 117, BUN/Creatinine Ratio 10.7, Glucose 120 H, Calcium 9.7 Physical Exam Const alert, oriented x3 and no apparent distress General Appearance: cooperative Exam Limitations: no limitations HEENT normocephalic and head/scalp atraumatic Head and Scalp: normocephalic Eyes PERRL, EOMs intact bilaterally, conjunctivae normal and no scleral icterus Neck no lymphadenopathy and supple General: trachea midline Resp normal respiratory effort, normal air movement, no retractions, no use of accessory muscles and clear to auscultation bilaterally Cardio regular rate, regular rhythm, S1 normal heart sound, S2 normal heart sound, no murmurs and peripheral pulses 2+ throughout GI GI Narrative: abdomen soft, moderate epigastric tenderness, no guarding or rebound tenderness. tender hepatomegaly. Inspection: abdominal distention Auscultation: normoactive bowel sounds Palpation: tender epigastric, LUQ and RUQ and hepatomegaly Extremity normal to inspection, full ROM, normal capillary refill and no clubbing, cyanosis or edema General Extremity: no tenderness to palpation of joints or extremities Peripheral Pulses: Yes pulses 2+ throughout Skin no rashes or lesions noted General Skin Exam: no breakdown and turgor normal Lesions: no lesions Rashes: no rashes Neuro oriented x3, CN's II-XII intact bilaterally, moves all extremities, no focal motor deficits and no sensory deficits noted Sensorium / Orientation: awake, alert and confused Coordination / Balance: [id number] test normal and [id number]-[id number] test normal Psych cooperative and affect normal Mood & Affect: tearful Thought Process: confused Assessment & Plan Assessment/Plan (1) Hypercalcemia: (2) Cancer, metastatic to liver: (3) Pleural effusion on right: PLAN: #Hypercalcemia likely due to malignancy * calcium is down to 10.6 today * will cut down on IVF and dc lasix * continue aggressive oral hydration * PTH was low at <6.3 * #Metastatic lesions in the liver and lung * abdominopelvic CT showed diffuse metastatic disease in the liver with hepatomegaly and retroperitoneal adenopathy, and fibroid uterus visualised. * CEA antigen and CA 19-9 ordered and pending * CA 19-9 elevated. CEA antigen also elevated. * oncology on board. Source of primary malignancy is unclear * liver biopsy done, pathology report is pending. * EGD showed grade a reflux esophagitis and duodenitis which was biopsied. Colonoscopy showed 2 1 to 2 mm polyps in the sigmoid colon and in the cecum which were removed with a hot snare. Sent for pathology. * #Hypokalemia: resolved #Abnormal TSH * TSH is 6.9 but free T4 is 1.03. This indicates subclinical hypothyroidism and may be as a result of critical illness. * To repeat labs once patient is better. #Small Right-sided pleural effusion: * Chest CT showed multiple left pulmonary nodules with metastatic disease to the lung being a concern as well as hepatomegaly with diffuse hepatic enlargement and small right pleural effusion * may be related to underlying malignancy also * currently on room air * DVT prophylaxis: lovenox Charges/Coding Visit Charges Inpatient E&M: 38813 Subs Hosp L2
[2021-04-25] MEDS: Acetaminophen 325 MG Tablet 650 MG PO (14:30)
--- NOTE | 2021-04-25 16:11 | CM.ED ---
RENETTA Note Referral Source: [facility] RENETTA Referral Reason: Financial issues SW spoke to RN caring for patient. She advised patient has not voiced pain or complaints today. SW met with patient. Patient confirmed she has no insurance. She said that they applied for medicaid 3 years ago but were denied due to the amount of money in their savings account. SW provided patient with Financial resource packet which included medicaid application. SW also provided patient with counseling resources for support and pamphlet on Maye, Change Number Operator at [facility]. RENETTA explained that since patient has a new diagnosis she may want to apply for medicaid again and encouragaed her to contact treatment navigator. SW remains available if additional needs arise. Plan: Resources provided Yokasta DIEHL
[2021-04-26] VITALS (9 sets, daily range): BP systolic 118–146; BP diastolic 62–75; PULSE 82–96; RESP 16–20; TEMP 36.4–36.9; O2SAT 94–96
[2021-04-26 05:55] LABS: Absolute Lymphocyte Count 0.79 X10^3/uL (0.83-4.51); Absolute Neutrophil Count 6.9 X10^3/uL (2.0-7.7); Basophil# 0.04 X10^3/uL; Basophil% 0.5 % (0-1); Eosinophil# 0.04 X10^3/uL; Eosinophils% 0.5 % (0-5); Hematocrit 36.4 % (37-47); Hemoglobin 10.8 g/dL (12.0-15.0); Lymphocyte # 0.79 X10^3/ul (0.83-4.51); Mean Corp Hgb Conc 29.7 g/dL (32-36); Mean Corpuscular Volume 94.3 fL (81-99); Mean Platelet Vol. 9.3 fl (6.2-12.0); Monocyte% 10.3 % (0-10); NRBC Flagged by Analyzer 0 % (0-5); Neutrophil # 6.91 X10^3/uL (2.7-7.7); Neutrophil % 79.1 % (47-70); Platelet Count 232 K/mm3 (150-450); RBC Distribution Width CV 14.5 % (11.6-14.6); Red Blood Count 3.86 M/mm3 (4.2-5.4); White Blood Count 8.7 K/mm3 (4.4-11.0)
[2021-04-26 06:57] LABS: Anion Gap 8 (5-15); BUN 6 mg/dL (7-18); BUN/Creat Ratio 11.8 RATIO (10-20); Chloride 106 mmol/L (98-107); Creatinine, Serum 0.51 mg/dL (0.55-1.02); EST Glomerular Filtration Rate 131 mL/min (>60); Est Glom Filt Rate - Afr Amer 158 mL/min (>60); Estimated Creatinine Clearance 94.61 ml/min; Glucose 102 mg/dL (74-106); Potassium 3.4 mmol/L (3.5-5.1); Sodium Level 136 mmol/L (136-145)
[2021-04-26] MEDS: Potassium Chloride Oral Tablet 20 MEQ 40 MEQ PO (07:56)
[2021-04-26] MEDS: Docusate Sodium 100 MG Capsule PO ×2 (07:57→22:03)
--- NOTE | 2021-04-26 12:06 | PN.HOSP_ITS ---
Subjective Subjective Patient seen and examined. Patient still feels quite worn out and very weak. She has no active complaints. She has not really been able to eat or drink well. Vitals have remained stable. Review of systems otherwise negative. Objective Data Objective Data Vital Signs: Vital Signs Temp Pulse Resp BP Pulse Ox 97.5 F L 88 16 119/65 95 04/26/21 10:25 04/26/21 10:25 04/26/21 10:25 04/26/21 10:25 04/26/21 10:25 Oxygen Flow Rate (L/min) [5] 2 Oxygen Flow Rate (L/min) [4] 2 Oxygen Flow Rate (L/min) [3] 2 Oxygen Flow Rate (L/min) [2] 2 Oxygen Flow Rate (L/min) [1 ( 2 Initial Baseline)] Oxygen Flow Rate (L/min) 2 Oxygen Delivery Method [5] Nasal Cannula Oxygen Delivery Method [4] Nasal Cannula Oxygen Delivery Method [3] Nasal Cannula Oxygen Delivery Method [2] Nasal Cannula Oxygen Delivery Method [1 ( Nasal Cannula Initial Baseline)] Oxygen Delivery Method Room Air Weight: 190 lb Body Mass Index (BMI) 33.6 Intake & Output: Intake and Output for Last 24 Hours 04/24/21 04/25/21 04/26/21 23:59 23:59 23:59 Intake Total 4928.33 / 5428.33 2420 / 2420 Output Total 450 / 450 3 / 3 0 / 0 Balance 4478.33 / 4978.33 2417 / 2417 0 / 0 Lab / Micro Data Result Diagrams: 04/26/21 05:44 04/26/21 05:44 Labs: Laboratory Results - last 24 hr 04/22/21 20:10: Magnesium 2.2 04/26/21 05:44: WBC 8.7, RBC 3.86 L, Hgb 10.8 L, Hct 36.4 L, MCV 94.3 D, MCH 28.0, MCHC 29.7 L D, RDW Std Deviation 50.0 H, RDW Coeff of Dolores 14.5, Plt Count 232, MPV 9.3, Immature Gran % (Auto) 0.600, Neut % (Auto) 79.1 H, Lymph % (Auto) 9.0 L, [place] % (Auto) 10.3 H, Eos % (Auto) 0.5, Baso % (Auto) 0.5, Absolute Neuts (auto) 6.9, Absolute Lymphs (auto) 0.79 L, Nucleated RBC % 0 04/26/21 05:44: Sodium 136, Potassium 3.4 L, Chloride 106, Carbon Dioxide 22.0, Anion Gap 8, BUN 6 L, Creatinine 0.51 L, Estim Creat Clear Calc 94.61, Est GFR (MDRD) Af Amer 158, Est GFR (MDRD) Non-Af 131, BUN/Creatinine Ratio 11.8, Glucose 102, Calcium 9.0 Physical Exam Const alert, oriented x3 and no apparent distress General Appearance: cooperative Orientation / Consciousness: lethargic Exam Limitations: no limitations HEENT normocephalic and head/scalp atraumatic Head and Scalp: normocephalic Eyes PERRL, EOMs intact bilaterally, conjunctivae normal and no scleral icterus Neck no lymphadenopathy and supple General: trachea midline Resp normal respiratory effort, normal air movement, no retractions, no use of accessory muscles and clear to auscultation bilaterally Cardio regular rate, regular rhythm, S1 normal heart sound, S2 normal heart sound, no murmurs and peripheral pulses 2+ throughout GI GI Narrative: abdomen soft, still has mild epigastric tenderness, no guarding or rebound tenderness. tender hepatomegaly. Inspection: abdominal distention Auscultation: normoactive bowel sounds Palpation: tender epigastric, LUQ and RUQ and hepatomegaly Extremity normal to inspection, full ROM, normal capillary refill and no clubbing, cyanosis or edema General Extremity: no tenderness to palpation of joints or extremities Peripheral Pulses: Yes pulses 2+ throughout Skin no rashes or lesions noted General Skin Exam: no breakdown and turgor normal Lesions: no lesions Rashes: no rashes Neuro oriented x3, CN's II-XII intact bilaterally, moves all extremities, no focal mo tor deficits and no sensory deficits noted Sensorium / Orientation: awake, alert and confused Coordination / Balance: [id number]-[id number] test normal and uree-ei-stxy test normal Psych cooperative and affect normal Mood & Affect: tearful Thought Process: confused Assessment & Plan Assessment/Plan (1) Hypercalcemia: (2) Cancer, metastatic to liver: (3) Pleural effusion on right: PLAN: #Hypercalcemia likely due to malignancy * resolved. * #Metastatic lesions in the liver and lung * abdominopelvic CT showed diffuse metastatic disease in the liver with hepatomegaly and retroperitoneal adenopathy, and fibroid uterus visualised. * CEA antigen and CA 19-9 ordered and pending * CA 19-9 elevated. CEA antigen also elevated. * oncology on board. Source of primary malignancy is unclear * liver biopsy done, pathology report is pending. * EGD showed grade a reflux esophagitis and duodenitis which was biopsied. Colonoscopy showed 2 1 to 2 mm polyps in the sigmoid colon and in the cecum which were removed with a hot snare. Sent for pathology. * #Hypokalemia: potassium is 3.4 today. Will replace and trend. #Abnormal TSH * TSH is 6.9 but free T4 is 1.03. This indicates subclinical hypothyroidism and may be as a result of critical illness. * To repeat labs once patient is better. #Small Right-sided pleural effusion: * Chest CT showed multiple left pulmonary nodules with metastatic disease to th e lung being a concern as well as hepatomegaly with diffuse hepatic enlargement and small right pleural effusion * may be related to underlying malignancy also * currently on room air * DVT prophylaxis: lovenox Disposition: anticipate discharge hopefully by tomorrow if patient is feeling stronger. Charges/Coding Visit Charges Inpatient E&M: 40648 Subs Hosp L2
--- NOTE | 2021-04-26 13:29 | PCM.PROGNOTE ---
Subjective Subjective Patient underwent EGD and colonoscopy yesterday. She is not having any abdominal pain or bleeding since the procedure. Objective Data Objective Data Vital Signs: Vital Signs Temp Pulse Resp BP Pulse Ox 97.5 F L 88 16 119/65 95 04/26/21 10:25 04/26/21 10:25 04/26/21 10:25 04/26/21 10:25 04/26/21 10:25 Oxygen Flow Rate (L/min) [5] 2 Oxygen Flow Rate (L/min) [4] 2 Oxygen Flow Rate (L/min) [3] 2 Oxygen Flow Rate (L/min) [2] 2 Oxygen Flow Rate (L/min) [1 ( 2 Initial Baseline)] Oxygen Flow Rate (L/min) 2 Oxygen Delivery Method [5] Nasal Cannula Oxygen Delivery Method [4] Nasal Cannula Oxygen Delivery Method [3] Nasal Cannula Oxygen Delivery Method [2] Nasal Cannula Oxygen Delivery Method [1 ( Nasal Cannula Initial Baseline)] Oxygen Delivery Method Room Air Weight: 190 lb Body Mass Index (BMI) 33.6 Intake & Output: Intake and Output for Last 24 Hours 04/24/21 04/25/21 04/26/21 23:59 23:59 23:59 Intake Total 4928.33 / 5428.33 2420 / 2420 420 / 420 Output Total 450 / 450 3 / 3 0 / 0 Balance 4478.33 / 4978.33 2417 / 2417 420 / 420 Lab / Micro Data Result Diagrams: 04/26/21 05:44 04/26/21 05:44 Labs: Laboratory Results - last 24 hr 04/26/21 05:44: WBC 8.7, RBC 3.86 L, Hgb 10.8 L, Hct 36.4 L, MCV 94.3 D, MCH 28.0, MCHC 29.7 L D, RDW Std Deviation 50.0 H, RDW Coeff of Dolores 14.5, Plt Count 232, MPV 9.3, Immature Gran % (Auto) 0.600, Neut % (Auto) 79.1 H, Lymph % (Auto) 9.0 L, [place] % (Auto) 10.3 H, Eos % (Auto) 0.5, Baso % (Auto) 0.5, Absolute Neuts (auto) 6.9, Absolute Lymphs (auto) 0.79 L, Nucleated RBC % 0 04/26/21 05:44: Sodium 136, Potassium 3.4 L, Chloride 106, Carbon Dioxide 22.0, Anion Gap 8, BUN 6 L, Creatinine 0.51 L, Estim Creat Clear Calc 94.61, Est GFR (MDRD) Af Amer 158, Est GFR (MDRD) Non-Af 131, BUN/Creatinine Ratio 11.8, Glucose 102, Calcium 9.0 Physical Exam Const alert General Appearance: cooperative Orientation / Consciousness: oriented to person HEENT hearing grossly normal bilaterally Head and Scalp: normal to inspection Face and Sinus: face symmetric Nose: external nose normal Mouth: oral and palatal mucosa normal Eyes conjunctivae normal General Eye: normal appearance of both eyes Neck full ROM General: normal visual inspection Lymph Lymphatic: no lymphadenopathy noted Chest inspection of chest normal and palpation of chest normal Chest: symmetrical chest wall rise Resp normal respiratory effort Effort and Inspection: able to speak in complete sentences Cardio regular rate GI non-distended Percussion: normal to percussion Rectal Exam: deferred Neuro Speech: speech normal Gait (Neuro): normal gait Assessment & Plan Assessment/Plan (1) Cancer, metastatic to liver: PLAN: There were no signs of malignancy seen on her upper and lower endoscopy. She did have some biopsies taken of her upper GI tract including her stomach and small bowel. It was tested for H. pylori that is pending.She also had 2 adenomatous polyps was removed from the colon. They did not look cancerous. We are still awaiting tumor markers and pathological analysis of her liver biopsy. Charges/Coding Visit Charges Inpatient E&M: 73367 Subs Hosp L2
[2021-04-26] MEDS: Ondansetron 4 MG/2 ML Vial IV (16:04)
[2021-04-26] MEDS: 0.9% Saline Lock 10 ML Syringe IV (16:04)
[2021-04-27 03:00] VITALS: PULSE 84
[2021-04-27 03:55] VITALS: BP 140/75; PULSE 89; RESP 16; TEMP 36.6; O2SAT 96
[2021-04-27 06:23] LABS: Absolute Lymphocyte Count 1.09 X10^3/uL (0.83-4.51); Absolute Neutrophil Count 7.6 X10^3/uL (2.0-7.7); Basophil# 0.03 X10^3/uL; Basophil% 0.3 % (0-1); Eosinophil# 0.08 X10^3/uL; Eosinophils% 0.8 % (0-5); Hemoglobin 10.4 g/dL (12.0-15.0); Lymphocyte # 1.09 X10^3/ul (0.83-4.51); Mean Corp Hgb Conc 31.5 g/dL (32-36); Mean Corpuscular Hgb 27.2 pg (27.0-32.0); Mean Corpuscular Volume 86.2 fL (81-99); Mean Platelet Vol. 9.3 fl (6.2-12.0); Monocyte# 1.04 X10^3/uL; Monocyte% 10.5 % (0-10); NRBC Flagged by Analyzer 0 % (0-5); Neutrophil # 7.56 X10^3/uL (2.7-7.7); Neutrophil % 76.7 % (47-70); Platelet Count 253 K/mm3 (150-450); RBC Distribution Width CV 14.6 % (11.6-14.6); RBC Distribution Width SD 45.7 fl (35.1-43.9); Red Blood Count 3.83 M/mm3 (4.2-5.4); White Blood Count 9.9 K/mm3 (4.4-11.0)
[2021-04-27 06:50] LABS: Anion Gap 5 (5-15); BUN 8 mg/dL (7-18); BUN/Creat Ratio 15.5 RATIO (10-20); Calcium,Total 9.8 mg/dL (8.5-10.1); Chloride 105 mmol/L (98-107); Creatinine, Serum 0.52 mg/dL (0.55-1.02); EST Glomerular Filtration Rate 128 mL/min (>60); Est Glom Filt Rate - Afr Amer 155 mL/min (>60); Estimated Creatinine Clearance 92.79 ml/min; Glucose 123 mg/dL (74-106); Potassium 3.7 mmol/L (3.5-5.1); Sodium Level 137 mmol/L (136-145)
[2021-04-27 07:45] VITALS: PULSE 87
[2021-04-27] MEDS: Docusate Sodium 100 MG Capsule PO (08:55)
[2021-04-27] MEDS: Acetaminophen 325 MG Tablet 650 MG PO (08:57)
[2021-04-27 09:00] VITALS: BP 123/69; PULSE 87; RESP 18; TEMP 36.4; O2SAT 97
[2021-04-27 11:45] VITALS: PULSE 93
[2021-04-27] MEDS: Polyethylene Glycol 3350 17 GM PACKET PO (13:05)
--- NOTE | 2021-04-27 15:05 | PCM.DC ---
Discharge Instructions Diet Discharge Diet: No restrictions Activity Discharge Activity: Return to Normal Activity Dressing / Incision Call your doctor if you observe: Fever of 101 or Higher, Shortness of breath, Dizziness, Fainting spells, Swelling in the ankles, Chest pain and Increased palpitations (irregular heartbeat) Follow Up Care Test Results: Test results from this visit will be discussed in further detail at your follow-up appointment, if applicable. Discharge Plan Admission Admit Date/Time: 04/22/21 18:24 Attending Provider: Luis Woodard Primary Care Provider: Farida Garrison Consulting Providers: Jim Ram Discharge Orders/Prescriptions Prescriptions: Continued magnesium oxide 400 mg magnesium Tablet 400 mg PO DAILY RF: 0 Referrals / Follow Up: Jim Ram MD [NON-STAFF] - Within 2 Weeks Farida Garrison DO [Primary Care Provider] - Within 1 Week Disposition Disposition (needs filled in before D/C Order can be placed): Home, Self Care
--- NOTE | 2021-04-27 15:08 | PCM.DC.SUM ---
Providers Date of Admission: 04/22/21 Primary Care Physician: Dr. Farida Garrison, DO Consultations 04/22/21 19:43 Consult: Oncology/Hematology Routine Consulting Provider: Jim Ram Reason for Consult: new cancer diagnosis, liver mets EMERGENT Consult: No Notified: Yes Date Notified: 04/23/21 Time Notified: 08:06 Method of Notification: Verbal 04/23/21 16:12 Consult: Gastroenterology Routine Consulting Provider: Mukesh Gastroenterology Reason for Consult: metastatic malignancy, suspect gastric EMERGENT Consult: No Notified: Yes Date Notified: 04/23/21 Time Notified: 16:12 Method of Notification: Text Reason For Visit: HYPERCALCEMIA/NEW MALIGANANCY Diagnosis Discharge Diagnosis (1) Cancer, metastatic to liver: Status: Acute Code(s): C78.7 - Secondary malignant neoplasm of liver and intrahepatic bile duct Medications at Discharge Home Medications magnesium oxide 400 mg PO DAILY 04/22/21 Hospital Course Operations None Procedures Colonoscopy, EGD and - (Liver biopsy) Summary of Care Provided Minutes Spent on Discharge: 42 Hospital Course: Per HPI: JAYLA HERNÁNDEZ, is a 60 F who presents with complaints of dizziness as well as neck pain and confusion. Patient's daughter is at bedside and states that she has been confused and had rambling speech. Patient states that approximately 2 months ago she began having neck pain and low back soreness and saw a chiropractor for which the lower back pain resolved however the neck pain persisted at one point she began having dizziness as well as neck pain. She reports that the neck pain is right posterior and then goes across the back of her neck to her spine. Patient states that she has associated nausea with the dizziness and has had ringing in her ears for the past 2 months or so. Patient states that while she was under the care of a chiropractor she recommended supplementation and shakes for a detox. Patient also reports that she has been constipated and has been taking magnesium supplement at home however this has not improved her constipation. Patient also reports abdominal bloating and intermittent diffuse abdominal pain. Patient states that she has not seen a primary care provider in 8 to 10 years. Hospital Course: 1. Metastatic lesions to liver of unknown [id number] female who presented with dizziness, neck pain, and confusion as well as low back pain who been seeing a chiropractor for the back pain was found to have what appears to be metastatic lesions to her liver with hypercalcemia which is now resolved. She did have a colonoscopy and EGD which did not demonstrate a primary lesion. She does have a CEA as well as a CA 19-9 ordered which were both elevated. She will need to follow-up with oncology as an outpatient. She feels better today and would like to go home. She denies any abdominal pain. Hypokalemia has resolved. Discussed with her that she will need to follow-up with her PCP in 3 to 5 days as well as her her oncologist. Pathology report is still pending. I discussed with her and her daughter the plan for possible discharge today, they expressed understanding of the risk benefits of going home and they would like to go home today. 2. Abnormal TSH?on admission her TSH was 6.9 but her free T4 was 1.03 which is consistent with a subclinical hypothyroidism. She will need to be monitored as an outpatient Physical Exam Const alert, oriented x3 and no apparent distress General Appearance: cooperative HEENT normocephalic and moist oral mucous membranes Eyes PERRL, EOMs intact bilaterally and conjunctivae normal Neck supple and no JVD Resp normal respiratory effort, no retractions, no use of accessory muscles and clear to auscultation bilaterally Auscultation: Negative for crackles, rales, rhonchi or wheezes Cardio regular rate, regular rhythm, S1 normal heart sound, S2 normal heart sound and no murmurs GI soft to palpation, non-tender and non-distended; Negative for hepatosplenomegaly Extremity no clubbing, cyanosis or edema Skin no rashes or lesions noted Neuro no focal motor deficits and no sensory deficits noted Psych affect normal Appearance: appropriate Weight / BMI Weight Weight: 190 lb Body Mass Index (BMI) 33.6 ABG / Lab / Microbiology Data Result Diagrams: 04/27/21 05:45 04/27/21 05:45 Laboratory: Laboratory Results - last 24 hr 04/27/21 05:45: WBC 9.9, RBC 3.83 L, Hgb 10.4 L, Hct 33.0 L, MCV 86.2 D, MCH 27.2, MCHC 31.5 L D, RDW Std Deviation 45.7 H, RDW Coeff of Dolores 14.6, Plt Count 253, MPV 9.3, Immature Gran % (Auto) 0.700, Neut % (Auto) 76.7 H, Lymph % (Auto) 11.0 L, [place] % (Auto) 10.5 H, Eos % (Auto) 0.8, Baso % (Auto) 0.3, Absolute Neuts (auto) 7.6, Absolute Lymphs (auto) 1.09, Nucleated RBC % 0 04/27/21 05:45: Sodium 137, Potassium 3.7, Chloride 105, Carbon Dioxide 27.0, Anion Gap 5, BUN 8, Creatinine 0.52 L, Estim Creat Clear Calc 92.79, Est GFR (MDRD) Af Amer 155, Est GFR (MDRD) Non-Af 128, BUN/Creatinine Ratio 15.5, Glucose 123 H, Calcium 9.8 D/C Instructions Discharge Diet: No restrictions Call your doctor if you observe: Fever of 101 or Higher, Shortness of breath, Dizziness, Fainting spells, Swelling in the ankles, Chest pain and Increased palpitations (irregular heartbeat) Meaningful Use Info Meaningful Use Diagnoses (Choose all that apply): None applicable Discharge Plan Admission Admit Date/Time: 04/22/21 18:24 Attending Provider: Luis Woodard Primary Care Provider: Farida Garrison Consulting Providers: Jim Ram Discharge Orders/Prescriptions Prescriptions: Continued magnesium oxide 400 mg magnesium Tablet 400 mg PO DAILY RF: 0 Referrals / Follow Up: Jim Ram MD [NON-STAFF] - Within 2 Weeks Farida Garrison DO [Primary Care Provider] - Within 1 Week Disposition Disposition (needs filled in before D/C Order can be placed): Home, Self Care Charges/Coding Visit Charges Inpatient E&M: 95067 Disch Hosp
[2021-04-27 15:59] VITALS: BP 126/77; PULSE 80; RESP 18; TEMP 36.9; O2SAT 96
== END 2021-04-27 16:21 | disposition home or self-care (01) | DRG 641 ==
LOC: ED 17:54 → PCU 18:44
PROVIDERS: Internal Medicine Gastroenterology; Nurse Practitioner Family; Student in an Organized Health Care Education/Training Program; Admitting Provider Internal Medicine; Emergency Provider Emergency Medicine; PCP Internal Medicine; Visit Provider Family Medicine
PROC: 0DJD8ZZ Inspection of Lower Intestinal Tract, Via Natural or Artificial Opening Endoscopic (ICD-10-PCS; CPT 45378; principal; 2021-04-25 07:30)
DX: E83.52 Hypercalcemia (principal); C78.00 Secondary malignant neoplasm of unspecified lung; C78.7 Secondary malignant neoplasm of liver and intrahepatic bile duct; J91.0 Malignant pleural effusion; E03.8 Other specified hypothyroidism; D64.9 Anemia, unspecified; E87.6 Hypokalemia; D12.0 Benign neoplasm of cecum; D12.5 Benign neoplasm of sigmoid colon; K29.80 Duodenitis without bleeding; I65.23 Occlusion and stenosis of bilateral carotid arteries; K59.00 Constipation, unspecified; D25.9 Leiomyoma of uterus, unspecified; E66.9 Obesity, unspecified; G89.3 Neoplasm related pain (acute) (chronic); Z68.34 Body mass index [BMI] 34.0-34.9, adult; K21.00 Gastro-esophageal reflux disease with esophagitis, without bleeding; R59.0 Localized enlarged lymph nodes
CPT/HCPCS: 36415; 70496; 70498; 71046; 71250; 74177; 77012; 80048; 80053; 81001; 82378; 83735; 83970; 84100; 84439; 84443; 84484; 85025; 85610; 85730; 86301; 86304; 88172; 88305; 88307; 88313; 88325; 88341; 88342; 93005; 97162; 97166; 97802; 99156; 99251; 99283; J3489; J7030; Q9967; A4216; G0463; J1940; J2405

== ENCOUNTER 2021-04-29 15:08 | Emergency (ER) | payer SELFPAY ==
[2021-04-29 15:09] VITALS: BP 119/77; PULSE 97; RESP 18; TEMP 35.8; O2SAT 97; BMI 33.6
--- NOTE | 2021-04-29 16:03 | EKG12_ITS ---
Test Reason : EDEMA Blood Pressure : / mmHG Vent. Rate : 086 BPM Atrial Rate : 086 BPM P-R Int : 138 ms QRS Dur : 080 ms QT Int : 352 ms P-R-T Axes : 051 -02 026 degrees QTc Int : 421 ms Normal sinus rhythm Normal ECG Confirmed by KRISHAN LUONG, GIOVANNA ([id number]), society editor LUIS ALFREDO JOAQUIN ([id number]) on 04/30/2021 10:22:53 A M Referred By: ELI/ANN Confirmed By:JOSE NICKERSON MD
--- NOTE | 2021-04-29 16:03 | VDLE_ITS ---
Reason For Study: SWELLING RIGHT LEFT GSV is normal. GSV is normal. CFV is compressible, spontaneous, phasic, CFV is compressible, spontaneous, phasic, competent and demonstrates normal competent, and demonstrates normal augmentation. augmentation. FV is compressible, spontaneous, phasic, FV is compressible, spontaneous, phasic, competent and demonstrates normal competent and demonstrates normal augmentation. augmentation. POP V is compressible, spontaneous, phasic, POP V is compressible, spontaneous, phasic, competent and demonstrates normal competent and demonstrates normal augmentation. augmentation. T/P Trunk is compressible. T/P Trunk is compressible. PTV is compressible. PTV is compressible. RT PerV is compressible. LT PerV is compressible. There is Rouleaux flow noted bilaterally. Procedure Technically difficult d/t edema- prox PeroV difficult to visualize . A preliminary report was called and/or faxed to ED. VL/Venous Duplex US - Albert Extrem Interpretation Summary No evidence for acute deep venous thrombosis bilateral lower extremities with p atent and compressible bilateral great saphenous veins. Sluggish venous flow was noted bi laterally Technically difficult examination secondary to edema Ordering Physician: Vargas Haq Referring Physician: PK WILD Performed By: Cintia Grey, MILADYS, RVT
--- NOTE | 2021-04-29 16:05 | EDS_ITS ---
HPI History of Present Illness Chief Complaint: Edema Informant: patient and family Onset/Context/Timing Onset: Today Context: gradual Timing: Continuous Current Severity: Mild Maximum Severity: Mild Associated Symptoms Chest Pain: Positive for None Narrative Narrative: 60-year-old female no last 1 to 2 weeks diagnosed with liver cancer with possible lung mets. Ascites and pleural effusion. She is pending follow- up with oncology. She started having swelling in her feet last night and worse today. Also shortness of breath. Denies chest pain. Denies fever. No history of DVT or PE. No hemoptysis PE Risk Factors: Positive for Cancer and Recent immobilization; Negative for OCP + Smoking + > 35, Prior DVT or PE, Recent surgery and Recent travel Prior similar symptoms: No Recent Illness/Hospitalization: Yes PFSH PFSH Medical History Non-smoker Obesity Home Medications magnesium oxide 400 mg PO DAILY 04/22/21 [History Last Taken 04/21/21] ondansetron 4 mg PO Q8H PRN #14 tab 04/29/21 [Rx Last Taken Unknown] Allergy/AdvReac Type Severity Reaction Status Date / Time Penicillins AdvReac Itching Verified 04/29/21 15:11 Surgical History Hx of appendectomy Hx of cholecystectomy Social History household members: spouse Smoking Status: Never smoker alcohol intake: never substance use type: does not use ROS ROS ED ROS Narrative Nausea. Leg swelling. Shortness of breath. Review of Systems ROS Unobtainable: Denies due to encephalopathy Constitutional Constitutional ED: Denies chills or fever(s) Eyes Eyes: Denies change in vision ENT ENT ED: Denies ear pain or rhinorrhea Cardiovascular Cardiovascular: Denies chest pain, palpitations or racing heartbeat Respiratory/Chest Respiratory/Chest: Reports dyspnea; Denies cough or sputum Gastrointestinal Gastrointestinal: Reports nausea; Denies abdominal pain, constipation, diarrhea, melena or vomiting Genitourinary Genitourinary ED: Denies dysuria Musculoskeletal Musculoskeletal: Denies myalgias Integumentary Denies rash Neurologic Neurologic: Denies headache(s) Psychiatric Psychiatric: Denies depression Endocrine Endocrinology: Denies polyuria Hematologic/Lymphatic Hematologic/Lymphatic: Denies easy bruising Allergic/Immunologic Allergic/Immunologic ED: Denies urticaria EXAM Physical Exam Narrative Exam Narrative: 60-year-old female no acute distress. Vital signs are stable and she is afebrile. She does not look septic or toxic. Pulse ox 97% on room air no signs hypoxia. HEENT exam unremarkable. Neck nontender no JVD. Lungs clear to auscultation bilaterally. Heart regular rate and rhythm rate about 97 no murmur. Chest were nontender. Abdomen soft. Nondistended normal bowel sounds no peritoneal signs. No obstruction. Enlarged liver. Mild right upper quadrant tenderness. Moving all 4 extremities. She has 1+ pitting edema both lower extremities. Equal symmetrical. Calves nontender without cords. Neurologically she is awake alert with no focal motor deficits. Const Vital Signs: 04/29/21 15:09 04/29/21 17:08 04/29/21 17:15 Temperature 96.5 F L 96.5 F L Temperature Source Temporal Temporal Pulse Rate 97 97 87 Respiratory Rate 18 18 18 Blood Pressure 119/77 119/77 141/78 H Blood Pressure Mean 91 91 99 Pulse Ox 97 97 95 Oxygen Delivery Method Room Air Room Air Room Air Positive well nourished and well developed; Negative for cachectic, contractures or unkempt General Appearance ED: well developed and NAD; Negative for unkempt, cachectic, contractures or pallor Nutritional Appearance: Negative for cachectic HEENT Reports moist mucous membranes Negative for atraumatic or trauma Eyes PERRL and EOMs intact bilaterally Neck no lymphadenopathy, supple, no meningeal signs and no JVD General: Negative for tenderness Resp normal respiratory effort and clear to auscultation bilaterally Auscultation: Negative for rales, rhonchi, wheezes or diminished lung sounds Cardio regular rate, regular rhythm, S1 normal heart sound, S2 normal heart sound and no murmurs GI non-tender and non-distended; Negative for no masses GI Narrative: Large liver in the right upper quadrant. Mild tenderness. Auscultation: normoactive bowel sounds Palpation: soft and tender; Negative for guarding or rebound tenderness present Back/Spine normal to inspection; Negative for no CVA tenderness General Back: Negative for CVA tenderness Extremity Negative for normal to inspection Extremity Narrative: Bilateral lower extremity 1+ pitting edema. General Extremety ED: Yes edema; Negative for tenderness General Extremity: edema Neuro oriented x3 and CN's II-XII intact bilaterally Sensorium / Orientation: alert, oriented to person, oriented to place and oriented to time; Negative for orientation impaired, confused, lethargic or stuporous Motor Exam: strength 5/5 throughout Psych mental status grossly normal Appearance: Negative for unkempt Attitude: No agitated Mood & Affect: Negative for depressed, anxious or tearful Thought Process: normal thought process Skin no wounds General Skin Exam: Negative for jaundice or pallor Lesions: no lesions Rashes: no rashes MDM MDM MDM Narrative Medical decision making narrative: 60-year-old with known liver cancer with suspected lung mets. Complain bilateral lower extremity swelling and shortness of breath she got peripheral edema both lower extremities. Ultrasound labs being obtained with a chest x-ray. Repeat exam patient is doing well. Ultrasound of her legs showed no DVTs. She had a recent abdominal CAT scan that did not show any inferior vena cava clot and I do not feel that needs to be repeated. She is doing well at 6:55 PM. I spoke to her and her family member who is a nurse here in the hospital. They have a follow-up appointment to see her oncologist Dr. Ram on Tuesday. Lab Data Attestation: I reviewed the patient's lab results. Lab results narrative: CBC shows a white count 10.9. H&H 11.6 and 36. Electrolytes show a gap of 6 normal BUN and creatinine. Liver enzymes unremarkable other than alkaline phosphatase of 240, AST of 172. Calcium slightly elevated 10.7. Glucose 101. Labs: Laboratory Results - last 24 hr 04/29/21 04/29/21 17:25 17:25 WBC 10.9 RBC 4.13 L Hgb 11.6 L Hct 36.2 L MCV 87.7 MCH 28.1 MCHC 32.0 RDW Std Deviation 46.6 H RDW Coeff of Dolores 14.6 Plt Count 306 MPV 9.3 Immature Gran % (Auto) 0.900 Neut % (Auto) 81.0 H Lymph % (Auto) 7.9 L [place] % (Auto) 9.5 Eos % (Auto) 0.3 Baso % (Auto) 0.4 Absolute Neuts (auto) 8.8 H Absolute Lymphs (auto) 0.86 Nucleated RBC % 0 Sodium 138 Potassium 3.8 Chloride 104 Carbon Dioxide 28.0 Anion Gap 6 BUN 8 Creatinine 0.65 Estim Creat Clear Calc 74.23 Est GFR (MDRD) Af Amer 118 Est GFR (MDRD) Non-Af 98 BUN/Creatinine Ratio 12.3 Glucose 101 Calcium 10.7 H Total Bilirubin 0.70 AST 172 H ALT 61 H Alkaline Phosphatase 244 H Total Protein 7.0 Albumin 2.2 L Globulin 4.8 H Albumin/Globulin Ratio 0.5 L Radiography Chest X-Ray - ED: 1 View, Read by ED Physician, Heart, Mediastinum, Bony Structures, Chronic Changes and - (Right elevated hemidiaphragm. Atelectasis and/or small pleural effusion.) Diagnostic Testing: Clinical Impression(s) from Imaging Studies Chest X-Ray 04/29/21 16:40 IMPRESSION: Elevated right hemidiaphragm with right basilar atelectasis and small pleural effusion. Electronically Signed: Portillo Avitia DO at 18:06 EST Reading Location ID and State: [address] [place] [address] Tel [phone], Service support , Both myself and the radiologist interpreted the chest x-ray. Rhythm Strip Rhythm Strip: Sinus Rhythm Rate: 86 Ectopy: None EKG Initial EKG: Attestation: I personally reviewed and interpreted this EKG as follows: Interpretation: Sinus Rhythm and No Acute Injury Pattern Comments: Normal sinus rhythm rate 86 no acute signs of [place] or ischemia. Prior EKG tracings: not available for review Discharge Plan Triage Chief Complaint: Edema ED Provider: Vargas Haq Dx/Rx/DC Orders Clinical Impression: Edema, peripheral, History of liver cancer, History of ascites Instructions: ED Peripheral Edema, Bilateral Prescriptions: New ondansetron 4 mg tablet,disintegrating 4 mg PO Q8H PRN (Reason: nausea and vomiting) Qty: 14 RF: 0 No Action magnesium oxide 400 mg magnesium Tablet 400 mg PO DAILY RF: 0 Primary Care Provider: Farida Garrison Referrals: Jim Ram MD [NON-STAFF] - Keep Maria T appointment Farida Garrison DO [Primary Care Provider] - As Needed Activity Restrictions/Additional Instructions: Elevate your legs to decrease swelling. Follow-up with your oncologist on Tuesday as scheduled. Your labs today did not show any significant change from prior. The ultrasound of your legs was negative for any blood clots. Disposition Disposition: Home, Self Care
--- NOTE | 2021-04-29 16:40 | RAD_ITS ---
STUDY: X-RAY CHEST REASON FOR EXAM: Female, 60 years old. Shortness of breath. TECHNIQUE: Single AP portable view of the chest. COMPARISON: CT of the chest, 04/22/2021. Chest, 04/22/2021. FINDINGS: Persistent elevation of right hemidiaphragm was minimal bandlike atelectasis. The lungs appear otherwise clear. Question small right pleural effusion Normal size heart. Normal mediastinum and keenan. Normal visualized pulmonary arteries. Normal visualized aortic arch and descending thoracic aorta. Normal visualized thoracic spine. Normal visualized ribs, clavicles, and shoulders. There is no demonstrated abnormality of the visualized soft tissue structures of the upper abdomen. RAD/Chest 1 View (Portable) IMPRESSION: Elevated right hemidiaphragm with right basilar atelectasis and small pleural effusion. Electronically Signed: Portillo Avitia DO at 18:06 EST ,
[2021-04-29 17:08] VITALS: BP 119/77; PULSE 97; RESP 18; TEMP 35.8; O2SAT 97
[2021-04-29] MEDS: Ondansetron 4 MG/2 ML Vial IV (17:13)
[2021-04-29 17:15] VITALS: BP 141/78; PULSE 87; RESP 18; O2SAT 95
[2021-04-29 17:47] LABS: Absolute Lymphocyte Count 0.86 X10^3/uL (0.83-4.51); Absolute Neutrophil Count 8.8 X10^3/uL (2.0-7.7); Basophil# 0.04 X10^3/uL; Basophil% 0.4 % (0-1); Eosinophil# 0.03 X10^3/uL; Eosinophils% 0.3 % (0-5); Hematocrit 36.2 % (37-47); Hemoglobin 11.6 g/dL (12.0-15.0); Lymphocyte # 0.86 X10^3/ul (0.83-4.51); Lymphocyte % 7.9 % (19-41); Mean Corpuscular Hgb 28.1 pg (27.0-32.0); Mean Corpuscular Volume 87.7 fL (81-99); Mean Platelet Vol. 9.3 fl (6.2-12.0); Monocyte# 1.03 X10^3/uL; Monocyte% 9.5 % (0-10); NRBC Flagged by Analyzer 0 % (0-5); Neutrophil # 8.81 X10^3/uL (2.7-7.7); Platelet Count 306 K/mm3 (150-450); RBC Distribution Width CV 14.6 % (11.6-14.6); RBC Distribution Width SD 46.6 fl (35.1-43.9); Red Blood Count 4.13 M/mm3 (4.2-5.4); White Blood Count 10.9 K/mm3 (4.4-11.0)
[2021-04-29 18:07] LABS: ALB/GLOB Ratio 0.5 RATIO (0.9-2.4); AST(SGOT) 172 U/L (15-37); Alanine Aminotransfer ALT/SGPT 61 U/L (13-56); Albumin, Serum 2.2 g/dL (3.2-5.0); Alkaline Phosphatase 244 U/L (45-117); Anion Gap 6 (5-15); BUN 8 mg/dL (7-18); BUN/Creat Ratio 12.3 RATIO (10-20); Calcium,Total 10.7 mg/dL (8.5-10.1); Chloride 104 mmol/L (98-107); Creatinine, Serum 0.65 mg/dL (0.55-1.02); EST Glomerular Filtration Rate 98 mL/min (>60); Est Glom Filt Rate - Afr Amer 118 mL/min (>60); Estimated Creatinine Clearance 74.23 ml/min; Globulin 4.8 g/dL (2.2-4.2); Glucose 101 mg/dL (74-106); Potassium 3.8 mmol/L (3.5-5.1); Sodium Level 138 mmol/L (136-145)
[2021-04-29 19:13] VITALS: BP 130/71; PULSE 94; RESP 18
== END 2021-04-29 23:59 | disposition home or self-care (01) ==
PROVIDERS: Emergency Provider Emergency Medicine; PCP Internal Medicine; Visit Provider Emergency Medicine
DX: R60.0 Localized edema (principal); C22.9 Malignant neoplasm of liver, not specified as primary or secondary; J90 Pleural effusion, not elsewhere classified; R18.8 Other ascites; R06.02 Shortness of breath; E66.9 Obesity, unspecified
CPT/HCPCS: 36415; 71045; 80053; 85025; 93005; 93970; 96374; 99284; A4216; J2405

== ENCOUNTER 2021-04-30 13:40 | Outpatient (CLI) | payer SELFPAY | END 2021-04-30 23:59 | disposition home or self-care (01) | LOC: RAD.FUTURE 13:42 | PROVIDERS: PCP Internal Medicine; Referring Provider Internal Medicine; Visit Provider Internal Medicine | DX: J90 Pleural effusion, not elsewhere classified (principal) ==

== ENCOUNTER 2021-05-07 08:13 | Outpatient (CLI) | payer SELFPAY ==
--- NOTE | 2021-05-07 08:20 | RAD_ITS ---
STUDY: X-RAY CHEST REASON FOR EXAM: Female, 60 years old. PLEURAL EFFUSION TECHNIQUE: PA and lateral views of the chest. COMPARISON: Comparison is made with prior examination dated 04/29/2021. FINDINGS: Increase in small right pleural effusion with right basilar infiltrate. The left lung is clear. Normal size heart. Normal mediastinum and keenan. Normal visualized pulmonary arteries. Normal visualized aortic arch and descending thoracic aorta. Normal visualized thoracic spine. Normal visualized ribs, clavicles, and shoulders. There is no demonstrated abnormality of the visualized soft tissue structures of the upper abdomen. RAD/Chest PA and Lateral IMPRESSION: Increasing right pleural effusion with right basilar infiltrate. Electronically Signed: Suman Mayen MD at 9:08 EST ,
== END 2021-05-07 23:59 | disposition home or self-care (01) ==
PROVIDERS: PCP Internal Medicine; Referring Provider Internal Medicine; Visit Provider Internal Medicine
DX: J90 Pleural effusion, not elsewhere classified (principal)
CPT/HCPCS: 71046